=== PATIENT | female | born 1940 | race Caucasian/White ===

== ENCOUNTER 2020-11-02 09:47 | Outpatient (REF) | payer MEDICARE, SELFPAY ==
[2020-11-02 10:39] LABS: MANUAL DIFF FLAG NO
[2020-11-02 10:49] LABS: Basophils Percent Auto 0.3 % (0-2); Eosinophils Absolute Auto 0.4 X10*3/uL (0.0-0.4); Eosinophils Percent Auto 3.8 % (0-4); Hematocrit 38.2 % (37-47); Hemoglobin 12.2 g/dl (12.0-16.0); Imm Gran Abs Auto 0.12 X10*3/uL (0.00-0.03); Imm Gran Pct Auto 1.2 % (0.0-0.4); Lymphocytes Absolute Auto 3.1 X10*3/uL (1.2-4.9); Lymphocytes Percent Auto 30.6 % (20-40); Mean Corpuscular HGB Conc 31.9 g/dl (31.0-35.0); Mean Corpuscular Volume 94.1 fL (80-98); Monocytes Absolute Auto 0.9 X10*3/uL (0.1-1.2); Monocytes Percent Auto 8.8 % (2-11); Neutrophils Absolute Auto 5.6 X10*3/uL (2.0-8.3); Neutrophils Percent Auto 55.3 % (45-73); Platelet Count 319 X10*3/uL (160-400); Red Blood Count 4.06 X10*6/uL (4.20-5.50); Red Cell Distribution Width 11.9 % (11.0-16.0); White Blood Count 10.2 X10*3/uL (4.8-10.8)
[2020-11-02 10:54] LABS: Estimated Average Glucose 194 mg/dL; Hemoglobin A1c % 8.4 %
[2020-11-02 11:09] LABS: Lithium 0.19 mmol/L (0.60-1.20)
[2020-11-02 11:13] LABS: Alanine Aminotransferase 26 U/L (0-31); Albumin Level 4.7 g/dL (3.5-5.0); Alkaline Phosphatase 82 U/L (39-117); Anion Gap 19 (12-20); Aspartate Amino Transferase 49 U/L (5-31); Bilirubin Total 0.3 mg/dL (0.0-1.0); Blood Urea Nitrogen 29 mg/dL (9-16); Calcium 9.9 mg/dL (8.4-10.2); Carbon Dioxide 21 mmol/L (22-29); Chloride 104 mmol/L (96-108); Estimated Glomerular Filt Rate 48; Glucose Random 241 mg/dL (60-115); Potassium 4.5 mmol/l (3.3-5.1); Sodium 139 mmol/L (135-145); Total Protein 7.4 g/dL (6.5-8.0)
[2020-11-02 11:37] LABS: Free T4 (Free Thyroxine) 0.81 ng/dL (0.71-1.85); Thyroid Stimulating Hormone 1.09 uIU/mL (0.32-4.0)
== END 2020-11-02 09:48 | disposition home or self-care (01) ==
LOC: HO.10HDL 09:47
PROVIDERS: Visit Provider Internal Medicine
DX: E11.9 Type 2 diabetes mellitus without complications (principal); I10 Essential (primary) hypertension; D64.9 Anemia, unspecified; E03.9 Hypothyroidism, unspecified; Z20.828 Contact with and (suspected) exposure to other viral communicable diseases
CPT/HCPCS: 36415; 80053; 80178; 83036; 84439; 84443; 85025; U0003

== ENCOUNTER 2021-01-24 12:30 | Outpatient (REF) | payer MEDICARE, SELFPAY | END 2021-01-24 12:31 | disposition home or self-care (01) | LOC: HO.10HDL 12:30 | PROVIDERS: Visit Provider Internal Medicine | DX: Z13.89 Encounter for screening for other disorder (principal) ==

== ENCOUNTER 2021-01-28 08:22 | Outpatient (REF) | payer MEDICARE, SELFPAY ==
[2021-01-28 10:18] LABS: MANUAL DIFF FLAG NO
[2021-01-28 10:32] LABS: Basophils Absolute Auto 0.1 X10*3/uL (0.0-0.2); Basophils Percent Auto 0.7 % (0-2); Eosinophils Absolute Auto 0.4 X10*3/uL (0.0-0.4); Eosinophils Percent Auto 3.9 % (0-4); Hematocrit 37.4 % (37-47); Hemoglobin 12.1 g/dl (12.0-16.0); Imm Gran Abs Auto 0.09 X10*3/uL (0.00-0.03); Imm Gran Pct Auto 0.9 % (0.0-0.4); Lymphocytes Absolute Auto 3.4 X10*3/uL (1.2-4.9); Lymphocytes Percent Auto 34.7 % (20-40); Mean Corpuscular HGB Conc 32.4 g/dl (31.0-35.0); Mean Corpuscular Volume 92.8 fL (80-98); Mean Platelet Volume 9.3 fL (9.4-12.3); Monocytes Percent Auto 10.1 % (2-11); Neutrophils Absolute Auto 4.9 X10*3/uL (2.0-8.3); Neutrophils Percent Auto 49.7 % (45-73); Platelet Count 308 X10*3/uL (160-400); Red Blood Count 4.03 X10*6/uL (4.20-5.50); Red Cell Distribution Width 12.3 % (11.0-16.0); White Blood Count 9.9 X10*3/uL (4.8-10.8)
[2021-01-28 11:06] LABS: Estimated Average Glucose 206 mg/dL; Hemoglobin A1c % 8.8 %
[2021-01-28 11:12] LABS: Alanine Aminotransferase 26 U/L (0-31); Albumin Level 4.5 g/dL (3.5-5.0); Alkaline Phosphatase 83 U/L (39-117); Anion Gap 15 (12-20); Aspartate Amino Transferase 39 U/L (5-31); Bilirubin Total 0.4 mg/dL (0.0-1.0); Blood Urea Nitrogen 32 mg/dL (9-16); Calcium 9.7 mg/dL (8.4-10.2); Carbon Dioxide 21 mmol/L (22-29); Chloride 107 mmol/L (96-108); Estimated Glomerular Filt Rate 47; Glucose Fasting 185 mg/dL (60-99); Potassium 4.8 mmol/L (3.3-5.1); Sodium 138 mmol/L (135-145); Total Protein 7.3 g/dL (6.5-8.0)
[2021-01-28 11:14] LABS: Creatinine Urine 58.77 mg/dL; Microalbum/Creatinine Ratio Ur 622.7 ug/mg cr
[2021-01-28 11:34] LABS: Free T4 (Free Thyroxine) 0.77 ng/dL (0.71-1.85); Thyroid Stimulating Hormone 1.44 uIU/mL (0.32-4.0)
== END 2021-01-28 08:23 | disposition home or self-care (01) ==
LOC: HO.10HDL 08:22
PROVIDERS: Visit Provider Internal Medicine
DX: E11.22 Type 2 diabetes mellitus with diabetic chronic kidney disease (principal); N18.9 Chronic kidney disease, unspecified; E03.9 Hypothyroidism, unspecified; F31.9 Bipolar disorder, unspecified
CPT/HCPCS: 36415; 80053; 82043; 83036; 84439; 84443; 85025

== ENCOUNTER 2021-04-26 09:18 | Outpatient (REF) | payer MEDICARE, SELFPAY ==
[2021-04-26 10:34] LABS: Estimated Average Glucose 203 mg/dL; Hemoglobin A1c % 8.7 %
[2021-04-26 10:46] LABS: Anion Gap 16 (12-20); Blood Urea Nitrogen 30 mg/dL (9-16); Carbon Dioxide 23 mmol/L (22-29); Chloride 105 mmol/L (96-108); Estimated Glomerular Filt Rate 49; Glucose Random 239 mg/dL (60-115); Potassium 5.3 mmol/L (3.3-5.1); Sodium 139 mmol/L (135-145)
[2021-04-26 10:55] LABS: Free T4 (Free Thyroxine) 0.81 ng/dL (0.71-1.85); Thyroid Stimulating Hormone 0.82 uIU/mL (0.32-4.0)
== END 2021-04-26 09:19 | disposition home or self-care (01) ==
LOC: HO.10HDL 09:18
PROVIDERS: Visit Provider Internal Medicine
DX: E11.22 Type 2 diabetes mellitus with diabetic chronic kidney disease (principal); N18.9 Chronic kidney disease, unspecified; E03.9 Hypothyroidism, unspecified
CPT/HCPCS: 36415; 80048; 83036; 84439; 84443

== ENCOUNTER 2021-07-05 09:05 | Outpatient (REF) | payer MEDICARE, SELFPAY ==
[2021-07-05 10:43] LABS: Estimated Average Glucose 197 mg/dL; Hemoglobin A1c % 8.5 %
[2021-07-05 10:48] LABS: Anion Gap 16 (12-20); Blood Urea Nitrogen 31 mg/dL (9-16); Carbon Dioxide 23 mmol/L (22-29); Chloride 106 mmol/L (96-108); Estimated Glomerular Filt Rate 42; Glucose Random 229 mg/dL (60-115); Sodium 140 mmol/L (135-145)
[2021-07-05 10:59] LABS: Calcium 10.7 mg/dL (8.4-10.2)
[2021-07-06 16:37] LABS: Calcium (PTHI) 10.6 mg/dL (8.6-10.4); PTHI 9 pg/mL (14-64)
== END 2021-07-05 09:06 | disposition home or self-care (01) ==
LOC: HO.10HDL 09:05
PROVIDERS: Visit Provider Internal Medicine
DX: E11.22 Type 2 diabetes mellitus with diabetic chronic kidney disease (principal); I12.9 Hypertensive chronic kidney disease with stage 1 through stage 4 chronic kidney disease, or unspecified chronic kidney disease; N18.9 Chronic kidney disease, unspecified; E83.52 Hypercalcemia
CPT/HCPCS: 36415; 80048; 83036; 83970

== ENCOUNTER 2021-10-04 09:41 | Outpatient (REF) | payer MEDICARE, SELFPAY ==
[2021-10-04 10:17] LABS: MANUAL DIFF FLAG NO
[2021-10-04 10:24] LABS: Basophils Absolute Auto 0.1 X10*3/uL (0.0-0.2); Basophils Percent Auto 0.5 % (0-2); Eosinophils Absolute Auto 0.3 X10*3/uL (0.0-0.4); Eosinophils Percent Auto 3.7 % (0-4); Hematocrit 34.8 % (37.0-47.0); Hemoglobin 11.5 g/dl (12.0-16.0); Imm Gran Pct Auto 1.1 % (0.0-0.4); Lymphocytes Absolute Auto 3.2 X10*3/uL (1.2-4.9); Lymphocytes Percent Auto 34.4 % (20-40); Mean Corpuscular Hemoglobin 30.5 pg (27.0-33.0); Mean Corpuscular Volume 92.3 fL (80.0-98.0); Mean Platelet Volume 8.8 fL (9.4-12.3); Monocytes Absolute Auto 0.8 X10*3/uL (0.1-1.2); Monocytes Percent Auto 8.7 % (2-11); Neutrophils Absolute Auto 4.7 x10*3/uL (2.0-8.3); Neutrophils Percent Auto 51.6 % (45-73); Platelet Count 293 X10*3/uL (160-400); Red Blood Count 3.77 X10*6/uL (4.20-5.50); Red Cell Distribution Width 12.4 % (11.0-16.0); White Blood Count 9.2 X10*3/uL (4.8-10.8)
[2021-10-04 10:59] LABS: Estimated Average Glucose 194 mg/dL; Hemoglobin A1c % 8.4 %; Lithium 0.36 mmol/L (0.60-1.20)
[2021-10-04 11:16] LABS: Free T4 (Free Thyroxine) 0.86 ng/dL (0.71-1.85); Thyroid Stimulating Hormone 0.67 uIU/mL (0.32-4.0)
[2021-10-04 11:32] LABS: Alanine Aminotransferase 22 U/L (0-31); Albumin Level 4.4 g/dL (3.5-5.0); Alkaline Phosphatase 85 U/L (39-117); Anion Gap 17 (12-20); Aspartate Amino Transferase 27 U/L (5-31); Bilirubin Total 0.2 mg/dL (0.0-1.0); Blood Urea Nitrogen 25 mg/dL (9-16); Calcium 9.9 mg/dL (8.4-10.2); Carbon Dioxide 17 mmol/L (22-29); Chloride 110 mmol/L (96-108); Estimated Glomerular Filt Rate 50; Glucose Random 201 mg/dL (60-115); Potassium 5.1 mmol/L (3.3-5.1); Sodium 139 mmol/L (135-145); Total Protein 7.2 g/dL (6.5-8.0)
[2021-10-04 14:36] LABS: Creatinine Urine 46.19 mg/dL; Microalbum/Creatinine Ratio Ur 824.8 ug/mg cr
== END 2021-10-04 09:42 | disposition home or self-care (01) ==
LOC: HO.10HDL 09:41
PROVIDERS: Visit Provider Internal Medicine
DX: E11.9 Type 2 diabetes mellitus without complications (principal); I10 Essential (primary) hypertension; E03.9 Hypothyroidism, unspecified
CPT/HCPCS: 36415; 80053; 80178; 82043; 83036; 84439; 84443; 85025

== ENCOUNTER 2022-01-31 09:01 | Outpatient (REF) | payer MEDICARE, SELFPAY ==
[2022-01-31 10:38] LABS: MANUAL DIFF FLAG NO
[2022-01-31 10:44] LABS: Basophils Absolute Auto 0.1 X10*3/uL (0.0-0.2); Basophils Percent Auto 0.7 % (0-2); Eosinophils Absolute Auto 0.4 X10*3/uL (0.0-0.4); Eosinophils Percent Auto 3.5 % (0-4); Hematocrit 37.8 % (37.0-47.0); Hemoglobin 12.1 g/dl (12.0-16.0); Imm Gran Abs Auto 0.13 X10*3/uL (0.00-0.03); Imm Gran Pct Auto 1.3 % (0.0-0.4); Lymphocytes Absolute Auto 4.3 X10*3/uL (1.2-4.9); Lymphocytes Percent Auto 41.9 % (20-40); Mean Corpuscular Hemoglobin 30.1 pg (27.0-33.0); Mean Platelet Volume 9.1 fL (9.4-12.3); Monocytes Absolute Auto 0.9 X10*3/uL (0.1-1.2); Monocytes Percent Auto 8.7 % (2-11); Neutrophils Absolute Auto 4.5 x10*3/uL (2.0-8.3); Neutrophils Percent Auto 43.9 % (45-73); Platelet Count 316 X10*3/uL (160-400); Red Blood Count 4.02 X10*6/uL (4.20-5.50); Red Cell Distribution Width 12.1 % (11.0-16.0); White Blood Count 10.2 X10*3/uL (4.8-10.8)
[2022-01-31 11:06] LABS: Lithium 0.23 mmol/L (0.60-1.20)
[2022-01-31 11:08] LABS: Estimated Average Glucose 189 mg/dL; Hemoglobin A1c % 8.2 %
[2022-01-31 11:10] LABS: Alanine Aminotransferase 26 U/L (0-31); Albumin Level 4.7 g/dL (3.5-5.0); Alkaline Phosphatase 80 U/L (39-117); Anion Gap 15 (12-20); Aspartate Amino Transferase 42 U/L (5-31); Bilirubin Total 0.4 mg/dL (0.0-1.0); Blood Urea Nitrogen 31 mg/dL (9-16); Calcium 10.5 mg/dL (8.4-10.2); Carbon Dioxide 20 mmol/L (22-29); Chloride 109 mmol/L (96-108); Cholesterol 204 mg/dL; Estimated Glomerular Filt Rate 42; Glucose Fasting 206 mg/dL (60-99); HDL Cholesterol 54 mg/dL; Potassium 5.2 mmol/L (3.3-5.1); Sodium 139 mmol/L (135-145); Total Protein 7.7 g/dL (6.5-8.0); Triglycerides 435 mg/dL
[2022-01-31 11:18] LABS: Creatinine Urine 48.09 mg/dL
[2022-01-31 11:33] LABS: Microalbum/Creatinine Ratio Ur 1359.9 ug/mg cr
[2022-01-31 11:34] LABS: Free T4 (Free Thyroxine) 0.78 ng/dL (0.71-1.85); Thyroid Stimulating Hormone 0.94 uIU/mL (0.32-4.0)
== END 2022-01-31 09:02 | disposition home or self-care (01) ==
LOC: HO.10HDL 09:01
PROVIDERS: Visit Provider Internal Medicine
DX: J44.9 Chronic obstructive pulmonary disease, unspecified (principal); E03.9 Hypothyroidism, unspecified; E11.9 Type 2 diabetes mellitus without complications; E78.5 Hyperlipidemia, unspecified
CPT/HCPCS: 36415; 80053; 80061; 80178; 82043; 83036; 84439; 84443; 85025

== ENCOUNTER 2022-07-11 11:04 | Outpatient (REF) | payer MEDICARE, SELFPAY ==
[2022-07-11 13:16] LABS: MANUAL DIFF FLAG NO
[2022-07-11 13:35] LABS: Basophils Absolute Auto 0.1 X10*3/uL (0.0-0.2); Basophils Percent Auto 0.5 % (0-2); Eosinophils Absolute Auto 0.4 X10*3/uL (0.0-0.4); Eosinophils Percent Auto 2.6 % (0-4); Hematocrit 34.9 % (37.0-47.0); Hemoglobin 11.2 g/dl (12.0-16.0); Imm Gran Abs Auto 0.15 X10*3/uL (0.00-0.03); Lymphocytes Absolute Auto 4.3 X10*3/uL (1.2-4.9); Lymphocytes Percent Auto 29.1 % (20-40); Mean Corpuscular HGB Conc 32.1 g/dl (31.0-35.0); Mean Corpuscular Volume 93.6 fL (80.0-98.0); Mean Platelet Volume 9.5 fL (9.4-12.3); Monocytes Absolute Auto 1.3 X10*3/uL (0.1-1.2); Monocytes Percent Auto 8.8 % (2-11); Neutrophils Absolute Auto 8.6 x10*3/uL (2.0-8.3); Platelet Count 383 X10*3/uL (160-400); Red Blood Count 3.73 X10*6/uL (4.20-5.50); Red Cell Distribution Width 12.2 % (11.0-16.0); White Blood Count 14.8 X10*3/uL (4.8-10.8)
[2022-07-11 13:43] LABS: Alanine Aminotransferase 25 U/L (0-31); Albumin Level 4.6 g/dL (3.5-5.0); Alkaline Phosphatase 68 U/L (39-117); Anion Gap 17 (12-20); Aspartate Amino Transferase 32 U/L (5-31); Blood Urea Nitrogen 37 mg/dL (9-16); Carbon Dioxide 19 mmol/L (22-29); Chloride 106 mmol/L (96-108); Estimated Average Glucose 197 mg/dL; Estimated Glomerular Filt Rate 37; Glucose Random 211 mg/dL (60-115); Hemoglobin A1c % 8.5 %; Potassium 5.5 mmol/L (3.3-5.1); Sodium 136 mmol/L (135-145); Total Protein 7.6 g/dL (6.5-8.0)
[2022-07-11 13:51] LABS: Bilirubin Total < 0.2 mg/dL (0.0-1.0)
[2022-07-11 13:56] LABS: Creatinine Urine 40.41 mg/dL; Microalbum/Creatinine Ratio Ur 878.4 ug/mg cr
[2022-07-11 14:03] LABS: Free T4 (Free Thyroxine) 0.83 ng/dL (0.71-1.85); Thyroid Stimulating Hormone 0.77 uIU/mL (0.32-4.0)
[2022-07-11 15:03] LABS: Appearance Urine Clear; Color Urine Yellow; Glucose Urine UA Negative (Negative); Leukocyte Esterase Urine Trace (Negative); Nitrite Urine Negative (Negative); PH 5.5 (5.0-8.0); Urine Blood Negative (Negative); Urine Ketones Negative (Negative); Urine Protein 30 (1+) mg/dL (Neg-Trace)
[2022-07-11 15:08] LABS: Bacteria Urine None Seen (None Seen); Hyaline Casts Urine 0-2 /LPF (0-2); RBC Urine 0-2 /HPF (0-2); Squamous Epithelial Cell Urine 0-2 /HPF (0-2); WBC Urine 0-5 /HPF (0-5)
== END 2022-07-11 11:05 | disposition home or self-care (01) ==
LOC: HO.10HDL 11:04
PROVIDERS: Visit Provider Internal Medicine
DX: I10 Essential (primary) hypertension (principal); R60.0 Localized edema; R00.2 Palpitations; E03.9 Hypothyroidism, unspecified; E11.9 Type 2 diabetes mellitus without complications
CPT/HCPCS: 36415; 80053; 81001; 81003; 82043; 83036; 84439; 84443; 85025; 87086

== ENCOUNTER 2022-11-02 09:44 | Outpatient (REF) | payer MEDICARE, SELFPAY ==
[2022-11-02 10:38] LABS: MANUAL DIFF FLAG NO
[2022-11-02 10:42] LABS: Appearance Urine Clear; Color Urine Yellow; Glucose Urine UA Negative (Negative); Leukocyte Esterase Urine Small (1+) (Negative); Nitrite Urine Negative (Negative); PH 5.5 (5.0-9.0); Specific Gravity - Urine 1.015 (1.005-1.025); UMIC TRIGGER UA YES; Urine Blood Negative (Negative); Urine Ketones Negative (Negative); Urine Protein 100 (2+) mg/dL (Neg-Trace)
[2022-11-02 10:49] LABS: Basophils Absolute Auto 0.1 X10*3/uL (0.0-0.2); Basophils Percent Auto 0.9 % (0-2); Eosinophils Absolute Auto 0.4 X10*3/uL (0.0-0.4); Eosinophils Percent Auto 4.3 % (0-4); Hemoglobin 11.5 g/dl (12.0-16.0); Imm Gran Abs Auto 0.12 X10*3/uL (0.00-0.03); Imm Gran Pct Auto 1.2 % (0.0-0.4); Lymphocytes Absolute Auto 3.6 X10*3/uL (1.2-4.9); Lymphocytes Percent Auto 34.9 % (20-40); Mean Corpuscular HGB Conc 31.9 g/dl (31.0-35.0); Mean Corpuscular Hemoglobin 29.5 pg (27.0-33.0); Mean Corpuscular Volume 92.3 fL (80.0-98.0); Neutrophils Percent Auto 48.7 % (45-73); Platelet Count 370 X10*3/uL (160-400); Red Cell Distribution Width 12.1 % (11.0-16.0); White Blood Count 10.3 X10*3/uL (4.8-10.8)
[2022-11-02 10:51] LABS: Bacteria Urine None Seen (None Seen); RBC Urine 0-2 /HPF (0-2); Squamous Epithelial Cell Urine 0-2 /HPF (0-2); WBC Urine 0-5 /HPF (0-5)
[2022-11-02 11:43] LABS: Estimated Average Glucose 209 mg/dL; Hemoglobin A1c % 8.9 %
[2022-11-02 12:07] LABS: Creatinine Urine 77.77 mg/dL
[2022-11-02 12:08] LABS: Microalbum/Creatinine Ratio Ur 835.7 ug/mg cr
[2022-11-02 12:14] LABS: Alanine Aminotransferase 25 U/L (0-31); Albumin Level 4.6 g/dL (3.5-5.0); Alkaline Phosphatase 57 U/L (39-117); Anion Gap 17 (12-20); Aspartate Amino Transferase 30 U/L (5-31); Bilirubin Total 0.3 mg/dL (0.0-1.0); Blood Urea Nitrogen 37 mg/dL (9-16); Calcium 10.7 mg/dL (8.4-10.2); Carbon Dioxide 19 mmol/L (22-29); Chloride 110 mmol/L (96-108); Cholesterol 221 mg/dL; Estimated Glomerular Filt Rate 34; Free T4 (Free Thyroxine) 0.84 ng/dL (0.71-1.85); Glucose Fasting 205 mg/dL (60-99); HDL Cholesterol 55 mg/dL; Iron 101 mcg/dL (30-160); Percent Iron Saturation 24 % (15-50); Potassium 5.7 mmol/L (3.3-5.1); Sodium 140 mmol/L (135-145); Thyroid Stimulating Hormone 0.62 uIU/mL (0.32-4.0); Total Iron Binding Capacity 422 mcg/dL (228-428); Total Protein 7.5 g/dL (6.5-8.0); Triglycerides 409 mg/dL; Unsaturated Iron Binding 321 ug/dL
[2022-11-02 12:18] LABS: Vitamin B12 333 pg/mL (200-900)
== END 2022-11-02 09:45 | disposition home or self-care (01) ==
LOC: HO.10HDL 09:44
PROVIDERS: Visit Provider Internal Medicine
DX: Z00.00 Encounter for general adult medical examination without abnormal findings (principal); E03.9 Hypothyroidism, unspecified; E11.9 Type 2 diabetes mellitus without complications
CPT/HCPCS: 36415; 80053; 80061; 81001; 82043; 82607; 83036; 83540; 84439; 84443; 85025

== ENCOUNTER 2022-11-08 09:33 | Outpatient (REF) | payer MEDICARE, SELFPAY ==
[2022-11-08 12:07] LABS: Anion Gap 15 (12-20); Blood Urea Nitrogen 32 mg/dL (9-16); Calcium 10.8 mg/dL (8.4-10.2); Carbon Dioxide 22 mmol/L (22-29); Chloride 104 mmol/L (96-108); Estimated Glomerular Filt Rate 34; Glucose Random 285 mg/dL (60-115); Potassium 4.9 mmol/L (3.3-5.1); Sodium 136 mmol/L (135-145)
== END 2022-11-08 09:34 | disposition home or self-care (01) ==
LOC: HO.10HDL 09:33
PROVIDERS: Visit Provider Internal Medicine
DX: I12.9 Hypertensive chronic kidney disease with stage 1 through stage 4 chronic kidney disease, or unspecified chronic kidney disease (principal); N18.9 Chronic kidney disease, unspecified
CPT/HCPCS: 36415; 80048

== ENCOUNTER → 2023-01-01 09:21 | Outpatient (BNVA) | payer MEDICARE, SELFPAY | PROVIDERS: PCP Internal Medicine; Referring Provider Internal Medicine; Visit Provider Internal Medicine Cardiovascular Disease | DX: R07.9 Chest pain, unspecified (principal); R53.83 Other fatigue; G47.30 Sleep apnea, unspecified | CPT/HCPCS: 93005; 99202 ==

== ENCOUNTER 2023-01-16 10:07 | Outpatient (REF) | payer MEDICARE, SELFPAY ==
[2023-01-16 10:37] LABS: MANUAL DIFF FLAG NO
[2023-01-16 10:52] LABS: Basophils Absolute Auto 0.1 X10*3/uL (0.0-0.2); Basophils Percent Auto 0.8 % (0-2); Eosinophils Absolute Auto 0.4 X10*3/uL (0.0-0.4); Hematocrit 36.2 % (37.0-47.0); Hemoglobin 11.6 g/dl (12.0-16.0); Imm Gran Abs Auto 0.08 X10*3/uL (0.00-0.03); Imm Gran Pct Auto 0.8 % (0.0-0.4); Lymphocytes Absolute Auto 3.7 X10*3/uL (1.2-4.9); Lymphocytes Percent Auto 34.7 % (20-40); Mean Corpuscular Hemoglobin 29.3 pg (27.0-33.0); Mean Corpuscular Volume 91.4 fL (80.0-98.0); Mean Platelet Volume 9.1 fL (9.4-12.3); Monocytes Absolute Auto 0.9 X10*3/uL (0.1-1.2); Monocytes Percent Auto 8.1 % (2-11); Neutrophils Absolute Auto 5.5 x10*3/uL (2.0-8.3); Neutrophils Percent Auto 51.6 % (45-73); Platelet Count 371 X10*3/uL (160-400); Red Blood Count 3.96 X10*6/uL (4.20-5.50); Red Cell Distribution Width 12.5 % (11.0-16.0); White Blood Count 10.6 X10*3/uL (4.8-10.8)
[2023-01-16 11:03] LABS: Estimated Average Glucose 203 mg/dL; Hemoglobin A1c % 8.7 %
[2023-01-16 11:27] LABS: Alanine Aminotransferase 25 U/L (0-31); Albumin Level 4.6 g/dL (3.5-5.0); Alkaline Phosphatase 58 U/L (39-117); Anion Gap 16 (12-20); Aspartate Amino Transferase 32 U/L (5-31); Bilirubin Total 0.3 mg/dL (0.0-1.0); Blood Urea Nitrogen 35 mg/dL (9-16); Calcium 11.2 mg/dL (8.4-10.2); Carbon Dioxide 21 mmol/L (22-29); Chloride 106 mmol/L (96-108); Estimated Glomerular Filt Rate 36; Glucose Random 183 mg/dL (60-115); Iron 90 mcg/dL (30-160); Percent Iron Saturation 21 % (15-50); Potassium 5.4 mmol/L (3.3-5.1); Sodium 138 mmol/L (135-145); Total Iron Binding Capacity 423 mcg/dL (228-428); Total Protein 7.3 g/dL (6.5-8.0); Unsaturated Iron Binding 333 ug/dL
[2023-01-16 11:45] LABS: Free T4 (Free Thyroxine) 0.82 ng/dL (0.71-1.85); Thyroid Stimulating Hormone 0.66 uIU/mL (0.32-4.0)
== END 2023-01-16 10:08 | disposition home or self-care (01) ==
LOC: HO.10HDL 10:07
PROVIDERS: Visit Provider Internal Medicine
DX: I12.9 Hypertensive chronic kidney disease with stage 1 through stage 4 chronic kidney disease, or unspecified chronic kidney disease (principal); E11.22 Type 2 diabetes mellitus with diabetic chronic kidney disease; N18.9 Chronic kidney disease, unspecified; F31.9 Bipolar disorder, unspecified; E03.9 Hypothyroidism, unspecified
CPT/HCPCS: 36415; 80053; 80178; 83036; 83540; 84439; 84443; 85025

== ENCOUNTER → 2023-01-17 10:45 | Outpatient (REF) | payer MEDICARE, SELFPAY ==
--- NOTE | 2023-01-17 10:48 | CA_ITS ---
Transthoracic Echocardiogram Patient (Last, First, Middle): Qi Fernandez Marie Gender: Female Date of : 1940 Age: 82 Procedure Date: 01/17/2023 Procedure Type: Transthoracic Echocardiogram Location: OP Height: 165.1 cm Weight: 90.27 kg BSA: 1.97 m2 Heart Rate: 82 bpm BP: 170 / 80 mmHg Product Development Manager: VINCENT Referring MD: Nikolai Stephenson MD Symptoms: R07.9 - Chest pain, unspecified Study Quality: Fair ECG Rhythm: Sinus Conclusions: - The left ventricular systolic function is normal. The visually estimated ejection fraction is between 60-65%. - There is mild aortic valve stenosis. Findings Left Ventricle Normal left ventricular cavity size. There is mildly increased left ventricular wall thickness. The left ventricular systolic function is normal. The visually estimated ejection fraction is between 60-65%. There is no evidence of regional wall motion abnormalities. E/E prime ratio is between 8 and 15 consistent with indeterminate filling pressures. Evidence suggests grade I (mild) diastolic dysfunction. Right Ventricle Normal right ventricular cavity size and systolic function. Atria Both atria are normal in size. Aortic Valve There is mild calcification of the aortic valve. There is mild aortic valve stenosis. There is no aortic valve regurgitation. Mitral Valve The mitral valve appears normal. There is no mitral valve regurgitation. There is no mitral valve stenosis. Pulmonic Valve The pulmonic valve is likely normal. Tricuspid Valve There is trace tricuspid valve regurgitation. There is no evidence of pulmonary hypertension. Great Vessels The asc aorta is normal in size. Venous The inferior vena cava is normal in size and collapses greater than 50% with inspiration. Pericardium/Pleural Prominent epicardial adipose tissue noted. There is a trivial pericardial effusion. Prior Study Comparison No prior study available for comparison. Measurements 2D Linear Measurements IVSd: 1.21 0.6-0.9/0.6-1.0 cm LVIDd: 3.88 3.9-5.3/4.2-5.9 cm LVIDd Index: 1.97 2.4-3.2/2.2-3.1 cm/m2 LVIDs: 2.62 2.0-3.6 cm LVPWd: 1.07 0.7-1.1 cm LA Diam: 3.30 2.7-3.8/3.0-4.0 cm LAIDs Index: 1.68 1.5-2.3 cm/m2 LV Mass: 182.35 67-162/88-224 g LV Mass Index: 92.56 43-95/49-115 g/m2 LVOT Diam: 2.00 3.0+(-)1.3 cm 2D Systolic Function EF 4C: 60.40 >55% EF 2C: 53.30 >55% EF BiP: 55.70 >55% Mitral Valve MV Pk E: 0.60 MV PK A: 0.92 MV Decel Time: 210.00 E/A: 0.60 E'Lateral: 5.52 E'Medial: 5.61 E/E' Med: 10.70 E/E' Lat: 10.90 PHT: 62.00 MVA PHT: 3.55 Decel [place]: 2.85 Aortic Valve AoV Pk Saul: 2.04 AoV Mn Saul: 1.46 AoV VTI: 0.39 AoV Pk Grad: 17.00 Aov Mn Grad: 10.00 ALONDRA Cont.VTI: 1.71 LVOT LVOT Pk Saul: 1.12 LVOT Mn Saul: 0.75 LVOT VTI: 0.21 LVOT Pk Grad: 5.00 LVOT Mn Grad: 3.00 LVOT Diam: 2.00 LVOT Area: 3.14 Diastolic Function MV Pk E: 0.60 MV Pk A: 0.92 E/A: 0.60 E'Medial: 5.61 E/E' Med: 10.70 E' Laterial: 5.52 E/E' Lat: 10.90 Right Ventricle TAPSE (mm): 21.40 TVS' Saul: 15.20 Tricuspid Valve TR Pk Saul: 1.59 TR Pk Grad: 10.00 RA Press: 3.00 RVSP: 13.00 Great Vessels Aorta Sinus of Valsalva: 3.20 2.0-3.5 cm Ao Asc: 3.30 2.1-3.4 cm Pulmonary Valve PV Pk Saul: 1.58 Peak PV Grad: 10.00 Updated in Other Vendor System with Status of Final Last Urbina MD electronically signed on 01/19/2023 1:31:10 PM with status of Final
== END ==
LOC: HO.CARD 10:45
PROVIDERS: Visit Provider Internal Medicine Cardiovascular Disease
DX: R07.9 Chest pain, unspecified (principal)
CPT/HCPCS: 93306

== ENCOUNTER → 2023-01-19 08:29 | Outpatient (REF) | payer MEDICARE, SELFPAY ==
--- NOTE | ~2023-01-19 | NM_ITS ---
Lexiscan Myocardial perfusion study Indication: Chest pain, assess for coronary disease and ischemia Technique: The patient was brought in for a Lexiscan perfusion study on 01/19/2023 and was injected 0.4 mg of Lexiscan intravenously. Within a minute of this injection 30 mCi of sestamibi was given intravenously. Images were obtained using the SPECT gamma camera interlaced with the gating device. Images were obtained in supine position. Resting perfusion study was performed on 01/23/2023. Patient was administered 30 mCi of sestamibi intravenously at rest. Images were then obtained in supine position. Total DLP 184mGy-cm. Images were processed with the software and compared side to side in short axis, horizontal long axis and vertical long axis views. Findings: Raw acquisition reviewed. Arms by the patient's side. The stress perfusion study showed mildly diminished tracer uptake along the mid anterior wall as well as inferior wall. With CT attenuation correction, there is significantly improved suggestive of artifactual etiology. The gated study shows normal LV systolic function. However, cannot LVEF does not appear accurate. LV cavity is normal in size. The gated study shows normal wall thickening and contraction of segments. Resting study shows diminished tracer uptake along the inferior wall towards the basal aspect. There is improvement with CT attenuation correction suggestive of diaphragmatic attenuation artifact. Gating at rest reveals normal wall motion. Calculated LVEF unreliable. The findings are consistent with no clear reversible or fixed perfusion defects. NM/NM cardiolite stress test Impression: 1. Myocardial perfusion imaging study shows likely normal myocardial perfusion. 2. Gated LVEF is unreliable, but visually normal contractility. EKG component of the test reported separately.
--- NOTE | 2023-01-19 08:36 | CA_ITS ---
Acquisition Time: 2023-01-19 08:59:48 Total Exercise Time: 00:02:00 Test Indications: CHEST PAIN Medications: Protocol: LEXISCAN Max HR: 108 BPM 78% of Pred: 137 BPM Max BP: 178/076 mmHG Max Work Load: 1.0 METS Pharmacological stress test using Lexiscan while sitting and kicking her feet. Pt tolerated well.. Denies any SOB or CP. EKG without any arrhythmias, non-= diagnostic for ischemia. Nuclear images to follow. Normotensive response to test. Test reviewed with Dr. Kelley Referred By: Nikolai Stephenson Overread By: Vielka Alvarado NP
== END ==
LOC: HO.CARD 08:29
PROVIDERS: PCP Internal Medicine; Visit Provider Internal Medicine Cardiovascular Disease
DX: R07.9 Chest pain, unspecified (principal); R53.83 Other fatigue
CPT/HCPCS: 78452; 93017; A9500; J2785

== ENCOUNTER 2023-01-26 09:19 | Outpatient (REF) | payer MEDICARE, SELFPAY ==
[2023-01-26 11:37] LABS: Anion Gap 16 (12-20); Blood Urea Nitrogen 45 mg/dL (9-16); Calcium 10.1 mg/dL (8.4-10.2); Carbon Dioxide 19 mmol/L (22-29); Chloride 109 mmol/L (96-108); Estimated Glomerular Filt Rate 32; Glucose Random 233 mg/dL (60-115); Potassium 5.2 mmol/L (3.3-5.1); Sodium 139 mmol/L (135-145)
[2023-01-29 15:53] LABS: Calcium (PTHI) 10.2 mg/dL (8.6-10.4); PTHI <6 pg/mL (16-77)
== END 2023-01-26 09:20 | disposition home or self-care (01) ==
LOC: HO.10HDL 09:19
PROVIDERS: Visit Provider Internal Medicine
DX: I12.9 Hypertensive chronic kidney disease with stage 1 through stage 4 chronic kidney disease, or unspecified chronic kidney disease (principal); E11.22 Type 2 diabetes mellitus with diabetic chronic kidney disease; N18.9 Chronic kidney disease, unspecified; E83.52 Hypercalcemia
CPT/HCPCS: 36415; 80048; 83970

== ENCOUNTER 2023-03-13 10:12 | Outpatient (REF) | payer MEDICARE, SELFPAY ==
[2023-03-13 13:19] LABS: MANUAL DIFF FLAG NO
[2023-03-13 13:23] LABS: Basophils Absolute Auto 0.1 X10*3/uL (0.0-0.2); Basophils Percent Auto 0.7 % (0-2); Eosinophils Absolute Auto 0.5 X10*3/uL (0.0-0.4); Eosinophils Percent Auto 4.2 % (0-4); Hematocrit 35.4 % (37.0-47.0); Hemoglobin 11.5 g/dl (12.0-16.0); Imm Gran Abs Auto 0.11 X10*3/uL (0.00-0.03); Lymphocytes Absolute Auto 3.6 X10*3/uL (1.2-4.9); Lymphocytes Percent Auto 33.4 % (20-40); Mean Corpuscular HGB Conc 32.5 g/dl (31.0-35.0); Mean Corpuscular Hemoglobin 30.5 pg (27.0-33.0); Mean Corpuscular Volume 93.9 fL (80.0-98.0); Mean Platelet Volume 9.5 fL (9.4-12.3); Monocytes Absolute Auto 0.9 X10*3/uL (0.1-1.2); Monocytes Percent Auto 8.5 % (2-11); Neutrophils Absolute Auto 5.7 x10*3/uL (2.0-8.3); Neutrophils Percent Auto 52.2 % (45-73); Platelet Count 372 X10*3/uL (160-400); Red Blood Count 3.77 X10*6/uL (4.20-5.50); Red Cell Distribution Width 12.4 % (11.0-16.0); White Blood Count 10.9 X10*3/uL (4.8-10.8)
[2023-03-13 13:47] LABS: Estimated Average Glucose 203 mg/dL; Hemoglobin A1c % 8.7 %
[2023-03-13 14:02] LABS: Alanine Aminotransferase 24 U/L (0-31); Albumin Level 4.6 g/dL (3.5-5.0); Alkaline Phosphatase 65 U/L (39-117); Anion Gap 14 (12-20); Aspartate Amino Transferase 28 U/L (5-31); Bilirubin Total 0.3 mg/dL (0.0-1.0); Blood Urea Nitrogen 43 mg/dL (9-16); Calcium 10.1 mg/dL (8.4-10.2); Carbon Dioxide 21 mmol/L (22-29); Chloride 108 mmol/L (96-108); Estimated Glomerular Filt Rate 29; Glucose Random 305 mg/dL (60-115); Iron 86 mcg/dL (30-160); Percent Iron Saturation 21 % (15-50); Sodium 137 mmol/L (135-145); Total Iron Binding Capacity 417 mcg/dL (228-428); Total Protein 7.2 g/dL (6.5-8.0); Unsaturated Iron Binding 331 ug/dL
[2023-03-13 14:08] LABS: Microalbum/Creatinine Ratio Ur 618.7 ug/mg cr
== END 2023-03-13 10:13 | disposition home or self-care (01) ==
LOC: HO.10HDL 10:12
PROVIDERS: Visit Provider Internal Medicine
DX: D64.9 Anemia, unspecified (principal); I12.9 Hypertensive chronic kidney disease with stage 1 through stage 4 chronic kidney disease, or unspecified chronic kidney disease; E11.22 Type 2 diabetes mellitus with diabetic chronic kidney disease; N18.9 Chronic kidney disease, unspecified
CPT/HCPCS: 36415; 80053; 82043; 83036; 83540; 85025

== ENCOUNTER 2023-03-19 10:02 | Outpatient (REF) | payer MEDICARE, SELFPAY ==
[2023-03-19 14:31] LABS: Anion Gap 18 (12-20); Carbon Dioxide 19 mmol/L (22-29); Chloride 107 mmol/L (96-108); Hematocrit 34.7 % (37.0-47.0); Mean Corpuscular HGB Conc 31.7 g/dl (31.0-35.0); Mean Corpuscular Hemoglobin 30.1 pg (27.0-33.0); Mean Corpuscular Volume 94.8 fL (80.0-98.0); Mean Platelet Volume 9.5 fL (9.4-12.3); Platelet Count 375 X10*3/uL (160-400); Potassium 5.6 mmol/L (3.3-5.1); Red Blood Count 3.66 X10*6/uL (4.20-5.50); Red Cell Distribution Width 12.2 % (11.0-16.0); Sodium 138 mmol/L (135-145); White Blood Count 10.6 X10*3/uL (4.8-10.8)
[2023-03-19 14:53] LABS: Alanine Aminotransferase 23 U/L (0-31); Albumin Level 4.5 g/dL (3.5-5.0); Alkaline Phosphatase 57 U/L (39-117); Aspartate Amino Transferase 29 U/L (5-31); Bilirubin Direct 0.1 mg/dL (0.0-0.5); Bilirubin Total 0.3 mg/dL (0.0-1.0); Blood Urea Nitrogen 52 mg/dL (9-16); Calcium 10.3 mg/dL (8.4-10.2); Estimated Glomerular Filt Rate 27; Phosphorus 4.5 mg/dL (2.7-4.5); Total Protein 7.2 g/dL (6.5-8.0); Uric Acid 8.5 mg/dL (2.4-5.7)
[2023-03-19 14:59] LABS: Vitamin D 25-OH Total 25.4 ng/mL (>30)
[2023-03-19 15:06] LABS: Creatinine Urine 52.98 mg/dL; Protein/Creatinine Ratio, Ur 0.76 (<0.2); Total Protein Urine Random 40 mg/dL (<12)
[2023-03-20 12:09] LABS: Prot Elec - Albumin 4.4 g/dL (3.8-4.8); Prot Elec - Alpha1 0.4 g/dL (0.2-0.3); Prot Elec - Alpha2 0.9 g/dL (0.5-0.9); Prot Elec - Beta 1 0.6 g/dL (0.4-0.6); Prot Elec - Beta 2 0.4 g/dL (0.2-0.5); Prot Elec - Gamma 0.8 g/dL (0.8-1.7); Prot Elec - Total Protein 7.4 g/dL (6.1-8.1)
[2023-03-20 21:29] LABS: Anti Glomerular Basement Memb <1.0 AI; Myeloperoxidase Antibody <1.0 AI
[2023-03-21 03:50] LABS: HBsAGNum1 0.32 S/CO (0.00-0.99); Hepatitis B Surface Antigen Negative (Negative); ~HepC Num1 0.19 S/CO (0.00-0.79); ~Hepatitis C Antibody Nonreactive (Nonreactive)
[2023-03-22 18:04] LABS: Calcium (PTHI) 10.8 mg/dL (8.6-10.4); PTHI <6 pg/mL (16-77)
== END 2023-03-19 10:03 | disposition home or self-care (01) ==
LOC: HO.10HDL 10:02
PROVIDERS: Internal Medicine Nephrology; Visit Provider Internal Medicine
DX: I12.9 Hypertensive chronic kidney disease with stage 1 through stage 4 chronic kidney disease, or unspecified chronic kidney disease (principal); N18.31 Chronic kidney disease, stage 3a; R79.89 Other specified abnormal findings of blood chemistry
CPT/HCPCS: 36415; 80051; 80076; 82306; 82310; 82565; 83520; 83970; 84100; 84156; 84165; 84520; 84550; 85027; 86021; 86803; 87340

== ENCOUNTER 2023-03-29 13:39 | Outpatient (REF) | payer MEDICARE, SELFPAY ==
--- NOTE | ~2023-03-29 | US_ITS ---
EXAMINATION: US RETROPERITONEAL LIMITED (RENAL ONLY) CLINICAL INFORMATION: Stage 3 chronic kidney disease. COMPARISON: None available. TECHNIQUE: Real-time imaging of the kidneys. FINDINGS: RIGHT KIDNEY: 10.7 x 6.0 x 5.8 cm (SAG x AP x TRV). The kidney is normal in size and echogenicity. There are persistent lobulations. Renal cortical thickness is normal. No renal hydronephrosis. At the interpolar aspect, 4 mm and 9 mm nonobstructing calculi are seen, with twinkle artifact. At the interpolar aspect, there are is a 9 mm benign, simple cyst, for which no imaging follow-up is recommended. LEFT KIDNEY: 10.9 x 5.1 x 5.6 cm (SAG x AP x TRV). The kidney is normal in size, contour, and echogenicity. Renal cortical thickness is normal. No hydronephrosis. At the upper pole, a 2.1 cm benign, simple cyst is seen. There is an adjacent 1.0 cm shadowing calculus, with twinkle artifact. US/US renal BI IMPRESSION: 1. Nonobstructing bilateral renal calculi are seen, as detailed. No hydronephrosis is noted. 2. There are benign, simple bilateral renal cysts, for which no imaging follow-up is recommended.
== END 2023-03-29 13:40 | disposition home or self-care (01) ==
LOC: HO.US 13:39
PROVIDERS: PCP Internal Medicine; Visit Provider Internal Medicine Nephrology
DX: I12.9 Hypertensive chronic kidney disease with stage 1 through stage 4 chronic kidney disease, or unspecified chronic kidney disease (principal); N18.31 Chronic kidney disease, stage 3a
CPT/HCPCS: 76775

== ENCOUNTER 2023-06-15 10:58 | Outpatient (REF) | payer MEDICARE, SELFPAY ==
[2023-06-15 14:24] LABS: MANUAL DIFF FLAG NO
[2023-06-15 14:46] LABS: Basophils Absolute Auto 0.1 X10*3/uL (0.0-0.2); Basophils Percent Auto 0.6 % (0-2); Eosinophils Absolute Auto 0.5 X10*3/uL (0.0-0.4); Eosinophils Percent Auto 4.4 % (0-4); Hematocrit 35.8 % (37.0-47.0); Hemoglobin 11.4 g/dl (12.0-16.0); Imm Gran Abs Auto 0.13 X10*3/uL (0.00-0.03); Imm Gran Pct Auto 1.2 % (0.0-0.4); Lymphocytes Absolute Auto 3.9 X10*3/uL (1.2-4.9); Lymphocytes Percent Auto 34.4 % (20-40); Mean Corpuscular HGB Conc 31.8 g/dl (31.0-35.0); Mean Corpuscular Hemoglobin 29.8 pg (27.0-33.0); Mean Corpuscular Volume 93.7 fL (80.0-98.0); Mean Platelet Volume 9.1 fL (9.4-12.3); Monocytes Absolute Auto 0.9 X10*3/uL (0.1-1.2); Monocytes Percent Auto 8.2 % (2-11); Neutrophils Absolute Auto 5.7 x10*3/uL (2.0-8.3); Neutrophils Percent Auto 51.2 % (45-73); Platelet Count 392 X10*3/uL (160-400); Red Blood Count 3.82 X10*6/uL (4.20-5.50); Red Cell Distribution Width 12.1 % (11.0-16.0); White Blood Count 11.2 X10*3/uL (4.8-10.8)
[2023-06-15 15:26] LABS: Alanine Aminotransferase 26 U/L (0-31); Albumin Level 4.7 g/dL (3.5-5.0); Alkaline Phosphatase 59 U/L (39-117); Anion Gap 14 (12-20); Aspartate Amino Transferase 38 U/L (5-31); Bilirubin Total 0.2 mg/dL (0.0-1.0); Blood Urea Nitrogen 51 mg/dL (9-16); Calcium 10.4 mg/dL (8.4-10.2); Carbon Dioxide 20 mmol/L (22-29); Chloride 107 mmol/L (96-108); Estimated Glomerular Filt Rate 29; Glucose Random 225 mg/dL (60-115); Iron 100 mcg/dL (30-160); Percent Iron Saturation 23 % (15-50); Potassium 5.4 mmol/L (3.3-5.1); Sodium 136 mmol/L (135-145); Total Iron Binding Capacity 442 mcg/dL (228-428); Total Protein 7.8 g/dL (6.5-8.0); Unsaturated Iron Binding 342 ug/dL
[2023-06-15 15:45] LABS: Lithium 0.32 mmol/L (0.60-1.20)
[2023-06-15 15:58] LABS: Free T4 (Free Thyroxine) 0.88 ng/dL (0.71-1.85); Thyroid Stimulating Hormone 0.77 uIU/mL (0.32-4.0)
== END 2023-06-15 10:59 | disposition home or self-care (01) ==
LOC: HO.10HDL 10:58
PROVIDERS: Visit Provider Internal Medicine
DX: I12.9 Hypertensive chronic kidney disease with stage 1 through stage 4 chronic kidney disease, or unspecified chronic kidney disease (principal); N18.9 Chronic kidney disease, unspecified; D63.1 Anemia in chronic kidney disease; F31.9 Bipolar disorder, unspecified; E03.9 Hypothyroidism, unspecified
CPT/HCPCS: 36415; 80053; 80178; 83540; 84439; 84443; 85025

== ENCOUNTER 2023-08-08 12:23 | Outpatient (REF) | payer MEDICARE, SELFPAY ==
[2023-08-08 13:18] LABS: MANUAL DIFF FLAG NO
[2023-08-08 13:21] LABS: Basophils Absolute Auto 0.1 X10*3/uL (0.0-0.2); Basophils Percent Auto 0.6 % (0-2); Eosinophils Absolute Auto 0.5 X10*3/uL (0.0-0.4); Eosinophils Percent Auto 3.1 % (0-4); Hematocrit 33.6 % (37.0-47.0); Hemoglobin 10.7 g/dl (12.0-16.0); Imm Gran Abs Auto 0.33 X10*3/uL (0.00-0.03); Imm Gran Pct Auto 2.3 % (0.0-0.4); Lymphocytes Absolute Auto 3.8 X10*3/uL (1.2-4.9); Lymphocytes Percent Auto 26.3 % (20-40); Mean Corpuscular HGB Conc 31.8 g/dl (31.0-35.0); Mean Corpuscular Hemoglobin 29.9 pg (27.0-33.0); Mean Corpuscular Volume 93.9 fL (80.0-98.0); Mean Platelet Volume 8.8 fL (9.4-12.3); Monocytes Absolute Auto 1.3 X10*3/uL (0.1-1.2); Monocytes Percent Auto 8.6 % (2-11); Neutrophils Absolute Auto 8.6 x10*3/uL (2.0-8.3); Neutrophils Percent Auto 59.1 % (45-73); Platelet Count 512 X10*3/uL (160-400); Red Blood Count 3.58 X10*6/uL (4.20-5.50); White Blood Count 14.6 X10*3/uL (4.8-10.8)
[2023-08-08 13:37] LABS: Estimated Average Glucose 206 mg/dL; Hemoglobin A1c % 8.8 % (<6.0)
[2023-08-08 14:04] LABS: Alanine Aminotransferase 22 U/L (0-31); Albumin Level 4.5 g/dL (3.5-5.0); Alkaline Phosphatase 71 U/L (39-117); Anion Gap 13 (12-20); Aspartate Amino Transferase 35 U/L (5-31); Bilirubin Total 0.2 mg/dL (0.0-1.0); Blood Urea Nitrogen 42 mg/dL (9-16); Calcium 10.7 mg/dL (8.4-10.2); Carbon Dioxide 19 mmol/L (22-29); Chloride 108 mmol/L (96-108); Estimated Glomerular Filt Rate 29; Glucose Random 206 mg/dL (60-115); Potassium 5.4 mmol/L (3.3-5.1); Sodium 135 mmol/L (135-145); Total Protein 7.9 g/dL (6.5-8.0)
== END 2023-08-08 12:24 | disposition home or self-care (01) ==
LOC: HO.10HDL 12:23
PROVIDERS: Visit Provider Internal Medicine
DX: D64.9 Anemia, unspecified (principal); I12.9 Hypertensive chronic kidney disease with stage 1 through stage 4 chronic kidney disease, or unspecified chronic kidney disease; E11.22 Type 2 diabetes mellitus with diabetic chronic kidney disease; N18.9 Chronic kidney disease, unspecified
CPT/HCPCS: 36415; 80053; 83036; 85025

== ENCOUNTER 2023-08-22 11:03 | Outpatient (REF) | payer MEDICARE, SELFPAY ==
[2023-08-22 13:46] LABS: Appearance Urine Clear; Color Urine Yellow; Glucose Urine UA Negative (Negative); Leukocyte Esterase Urine Small (1+) (Negative); Nitrite Urine Negative (Negative); PH 5.5 (5.0-9.0); UMIC TRIGGER UACC YES; Urine Blood Negative (Negative); Urine Ketones Negative (Negative); Urine Protein 30 (1+) mg/dL (Neg-Trace)
[2023-08-22 14:11] LABS: Bacteria Urine None Seen (None Seen); Hyaline Casts Urine 0-2 /LPF (0-2); RBC Urine 0-2 /HPF (0-2); Squamous Epithelial Cell Urine 0-2 /HPF (0-2); UACC Culture Trigger YES; WBC Urine 0-5 /HPF (0-5)
== END 2023-08-22 11:04 | disposition home or self-care (01) ==
LOC: HO.10HDLNP 11:03
PROVIDERS: Visit Provider Internal Medicine
DX: R41.0 Disorientation, unspecified (principal)
CPT/HCPCS: 81001; 87086

== ENCOUNTER 2023-08-28 12:15 | Outpatient (REF) | payer OTHER, SELFPAY ==
--- NOTE | ~2023-08-28 | XR_ITS ---
EXAMINATION: XR CHEST CLINICAL INFORMATION: Cough and COMPARISON: None available. TECHNIQUE: 2 views of the chest were obtained. FINDINGS: Heart size mildly prominent. Mediastinum is unremarkable. Aortic calcifications are seen. Vascularity is prominent but there is suboptimal inspiration. No consolidations or effusions. Degenerative changes. XR/XR chest 2V IMPRESSION: Low lung volumes likely responsible for vessel crowding. Mildly enlarged cardiac silhouette. No consolidations.
== END 2023-08-28 12:16 | disposition home or self-care (01) ==
LOC: HO.XRAY 12:15
PROVIDERS: PCP Internal Medicine; Visit Provider Internal Medicine
DX: R05.9 Cough, unspecified (principal); I10 Essential (primary) hypertension
CPT/HCPCS: 71046

== ENCOUNTER 2023-09-18 10:53 | Outpatient (REF) | payer OTHER, SELFPAY ==
[2023-09-18 13:39] LABS: MANUAL DIFF FLAG NO
[2023-09-18 13:44] LABS: Basophils Absolute Auto 0.1 X10*3/uL (0.0-0.2); Basophils Percent Auto 0.8 % (0-2); Eosinophils Absolute Auto 0.4 X10*3/uL (0.0-0.4); Eosinophils Percent Auto 3.8 % (0-4); Hematocrit 34.6 % (37.0-47.0); Hemoglobin 10.9 g/dl (12.0-16.0); Imm Gran Abs Auto 0.09 X10*3/uL (0.00-0.03); Imm Gran Pct Auto 0.9 % (0.0-0.4); Mean Corpuscular HGB Conc 31.5 g/dl (31.0-35.0); Mean Corpuscular Hemoglobin 28.9 pg (27.0-33.0); Mean Corpuscular Volume 91.8 fL (80.0-98.0); Mean Platelet Volume 9.1 fL (9.4-12.3); Monocytes Percent Auto 9.3 % (2-11); Neutrophils Percent Auto 47.2 % (45-73); Platelet Count 390 X10*3/uL (160-400); Red Blood Count 3.77 X10*6/uL (4.20-5.50); Red Cell Distribution Width 12.2 % (11.0-16.0); White Blood Count 10.5 X10*3/uL (4.8-10.8)
[2023-09-18 14:11] LABS: Alanine Aminotransferase 25 U/L (0-31); Albumin Level 4.6 g/dL (3.5-5.0); Alkaline Phosphatase 61 U/L (39-117); Anion Gap 16 (12-20); Aspartate Amino Transferase 24 U/L (5-31); Bilirubin Total 0.2 mg/dL (0.0-1.0); Blood Urea Nitrogen 56 mg/dL (9-16); Calcium 11.5 mg/dL (8.4-10.2); Carbon Dioxide 19 mmol/L (22-29); Chloride 110 mmol/L (96-108); Estimated Glomerular Filt Rate 31; Glucose Random 170 mg/dL (60-115); Sodium 140 mmol/L (135-145); Total Protein 7.9 g/dL (6.5-8.0)
[2023-09-18 14:26] LABS: Estimated Average Glucose 177 mg/dL; Hemoglobin A1c % 7.8 % (<6.0)
[2023-09-18 14:44] LABS: Lithium 0.21 mmol/L (0.60-1.20)
== END 2023-09-18 10:54 | disposition home or self-care (01) ==
LOC: HO.10HDL 10:53
PROVIDERS: Visit Provider Internal Medicine
DX: E11.22 Type 2 diabetes mellitus with diabetic chronic kidney disease (principal); I12.9 Hypertensive chronic kidney disease with stage 1 through stage 4 chronic kidney disease, or unspecified chronic kidney disease; N18.9 Chronic kidney disease, unspecified; D64.9 Anemia, unspecified
CPT/HCPCS: 36415; 80053; 80178; 83036; 85025

== ENCOUNTER 2023-09-27 10:10 | Outpatient (REF) | payer OTHER, SELFPAY ==
[2023-09-27 11:26] LABS: Anion Gap 15 (12-20); Blood Urea Nitrogen 43 mg/dL (9-16); Calcium 10.7 mg/dL (8.4-10.2); Carbon Dioxide 20 mmol/L (22-29); Chloride 110 mmol/L (96-108); Estimated Glomerular Filt Rate 33; Glucose Random 177 mg/dL (60-115); Potassium 4.8 mmol/L (3.3-5.1); Sodium 140 mmol/L (135-145)
[2023-09-28 17:49] LABS: Calcium (PTHI) 10.8 mg/dL (8.6-10.4); PTHI <6 pg/mL (16-77)
== END 2023-09-27 10:11 | disposition home or self-care (01) ==
LOC: HO.10HDL 10:10
PROVIDERS: Visit Provider Internal Medicine
DX: N18.9 Chronic kidney disease, unspecified (principal)
CPT/HCPCS: 36415; 80048; 83970

== ENCOUNTER 2023-12-28 10:39 | Outpatient (REF) | payer OTHER, SELFPAY ==
[2023-12-28 11:57] LABS: Influenza A PCR POSITIVE (Negative); Influenza B PCR NEGATIVE (Negative); Resp Syncy Virus RNA Qual PCR NEGATIVE (Negative); SARS COV2 PCR INHOUSE NEGATIVE (Negative)
[2023-12-28 13:23] LABS: MANUAL DIFF FLAG NO
[2023-12-28 13:34] LABS: Basophils Percent Auto 0.3 % (0-2); Eosinophils Absolute Auto 0.3 X10*3/uL (0.0-0.4); Eosinophils Percent Auto 2.5 % (0-4); Hematocrit 31.3 % (37.0-47.0); Imm Gran Pct Auto 0.8 % (0.0-0.4); Lymphocytes Absolute Auto 3.5 X10*3/uL (1.2-4.9); Lymphocytes Percent Auto 27.8 % (20-40); Mean Corpuscular HGB Conc 31.9 g/dl (31.0-35.0); Mean Corpuscular Hemoglobin 29.4 pg (27.0-33.0); Mean Corpuscular Volume 92.1 fL (80.0-98.0); Mean Platelet Volume 8.8 fL (9.4-12.3); Monocytes Absolute Auto 0.9 X10*3/uL (0.1-1.2); Monocytes Percent Auto 7.4 % (2-11); Neutrophils Absolute Auto 7.7 x10*3/uL (2.0-8.3); Neutrophils Percent Auto 61.2 % (45-73); Platelet Count 390 X10*3/uL (160-400); Red Cell Distribution Width 12.7 % (11.0-16.0); White Blood Count 12.6 X10*3/uL (4.8-10.8)
[2023-12-28 14:24] LABS: Alanine Aminotransferase 21 U/L (0-31); Albumin Level 4.2 g/dL (3.5-5.0); Alkaline Phosphatase 58 U/L (39-117); Anion Gap 15 (12-20); Aspartate Amino Transferase 21 U/L (5-31); Bilirubin Total 0.2 mg/dL (0.0-1.0); Blood Urea Nitrogen 43 mg/dL (9-16); Calcium 9.2 mg/dL (8.4-10.2); Carbon Dioxide 14 mmol/L (22-29); Chloride 113 mmol/L (96-108); Estimated Glomerular Filt Rate 30; Free T4 (Free Thyroxine) 1.08 ng/dL (0.71-1.85); Glucose Random 174 mg/dL (60-115); Potassium 5.5 mmol/L (3.3-5.1); Sodium 136 mmol/L (135-145); Thyroid Stimulating Hormone 0.39 uIU/mL (0.32-4.0); Total Protein 7.5 g/dL (6.5-8.0)
[2023-12-28 15:13] LABS: Estimated Average Glucose 160 mg/dL; Hemoglobin A1c % 7.2 % (<6.0)
== END 2023-12-28 10:40 | disposition home or self-care (01) ==
LOC: HO.10HDL 10:39
PROVIDERS: Visit Provider Internal Medicine
DX: R05.9 Cough, unspecified (principal); R06.2 Wheezing; I10 Essential (primary) hypertension; N18.9 Chronic kidney disease, unspecified; E03.9 Hypothyroidism, unspecified; E11.9 Type 2 diabetes mellitus without complications; Z11.52 Encounter for screening for COVID-19; Z20.828 Contact with and (suspected) exposure to other viral communicable diseases
CPT/HCPCS: 0241U; 36415; 80053; 83036; 84439; 84443; 85025

== ENCOUNTER 2024-01-16 11:22 | Outpatient (AMB) | payer OTHER, SELFPAY ==
--- NOTE | 2024-01-16 11:25 | HO.NEPHOV_ITS ---
HPI HPI Comments History of Present Illness Details I would the pleasure of seeing Qi in follow-up of her CKD. She was accompanied by her daughter Karen from [place]. Qi has history of lithium intake. Her lithium dose was reduced earlier which was not well tolerated as far as her mental health issues was concerned. She went back on her original dose of lithium. She had some diarrhea which had improved. She has diabetes and history of hypertension. She is on CHANDU inhibitor. Recently had serum potassium was 5.5 with a serum bicarb of 14. She denies any chest pain, shortness of breath, paroxysmal nocturnal dyspnea, orthopnea, pedal edema, orthostasis or urinary symptoms. She denies taking any excessive nonsteroidal anti-inflammatory medications. She tries to maintain good hydration. [facility] Medical History (Updated 01/16/24 @ 13:58 by Blas Mar MD) Hypertension Chronic kidney disease, stage 3a Hyperlipidemia Bipolar disorder Surgical History History of tonsillectomy Family History Mother No problems noted. Father Stroke Hypertension Diabetes Sister Cancer Social History Alcohol intake: never Patient Tobacco Use Status: Never used Tobacco Vital Signs 01/16/24 11:37 Height 5 ft 5 in Weight 184 lb 4 oz BMI 30.7 BP 144/60 H Blood Pressure Location Rt brachial Position Sitting Pulse 83 Pulse Source Pulse Oximeter Pulse Oximetry (%) 97 Oxygen Delivery Method Room Air Physical Exam Vital Signs: Last Vital Signs Pulse 83 01/16/24 11:37 BP 144/60 H 01/16/24 11:37 Pulse Ox 97 01/16/24 11:37 Oxygen Delivery Method Room Air 01/16/24 11:37 BMI result Body Mass Index 30.7 Const General: comfortable and no acute distress Orientation/consciousness: patient oriented x3 HEENT Head: Yes normocephalic Mouth: Normal oral and palatal mucosa present Eyes EOM: EOMs intact bilaterally Neck Neck: Yes supple Resp Auscultation: clear to auscultation bilaterally Cardio Jugular venous distension: no JVD Rate: regular rate GI Palpation (GI): Soft to palpation Auscultation: normal bowel sounds General: Yes no CVA tenderness Back/Spine/Pelvis Back: no CVA tenderness Skin General skin exam: no rashes or lesions noted Neuro General: patient oriented x3 and moves all extremities Extrem General: Yes no pedal edema Assessment & Plan Assessment & Plan (1) Hypertension: Code(s): I10 - Essential (primary) hypertension Qualifiers: Hypertension type: primary hypertension Qualified Code(s): I10 - Essential (primary) hypertension (2) Chronic kidney disease, stage 3a: Code(s): N18.31 - Chronic kidney disease, stage 3a (3) Metabolic acidosis: Code(s): E87.20 - Acidosis, unspecified (4) Hyperkalemia: Code(s): E87.5 - Hyperkalemia Plan 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 She may have contribution from diabetes, hypertension along with age related loss of renal function for CKD. She has no retinopathy, neuropathy or history of macrovascular disease. She is on CHANDU-inhibitor. She recently had diarrhea. Her serum potassium has been 5.6 with a serum bicarb of 14 recently. When the blood work was repeated today had serum bicarb has improved to 19. Her renal functions are stable. I started her on oral sodium bicarbonate 650 mg once daily to correct metabolic acidosis which hopefully will fix her hyperkalemia as well. She needs to maintain good hydration. She was asked to repeat her blood work again. If her serum potassium is climbing up I shall cut back on her CHANDU inhibitor. She will be a great candidate for Jardiance or Farxiga. I did not make any other medication changes today. All her and her daughter's questions were answered. Follow-up appointment given. Orders: Orders Creatinine Today I10 - Essential (primary) hypertension, N18.31 - Chronic kidney disease, stage 3a Blood Urea Nitrogen Today I10 - Essential (primary) hypertension, N18.31 - Chronic kidney disease, stage 3a Electrolytes Today I10 - Essential (primary) hypertension, N18.31 - Chronic kidney disease, stage 3a Creatinine 3 Months I10 - Essential (primary) hypertension, N18.31 - Chronic kidney disease, stage 3a Blood Urea Nitrogen 3 Months I10 - Essential (primary) hypertension, N18.31 - Chronic kidney disease, stage 3a Electrolytes 3 Months I10 - Essential (primary) hypertension, N18.31 - Chronic kidney disease, stage 3a Calcium Today I10 - Essential (primary) hypertension, N18.31 - Chronic kidney disease, stage 3a Calcium 3 Months I10 - Essential (primary) hypertension, N18.31 - Chronic kidney disease, stage 3a Coding Level of Care Code Est Pt Level 4 (53204) Diagnoses Primary hypertension I10 Hypertension type: primary hypertension Chronic kidney disease, stage 3a N18.31 Metabolic acidosis E87.20 Hyperkalemia E87.5 Results Reviewed Nephrology Results: Hgb 10.0 g/dl (12.0-16.0) L 12/28/23 WBC 12.6 X10*3/uL (4.8-10.8) H 12/28/23 Plt Count 390 X10*3/uL (160-400) 12/28/23 Sodium 140 mmol/L (135-145) 01/16/24 Potassium 5.6 mmol/L (3.3-5.1) H 01/16/24 Chloride 113 mmol/L (96-108) H 01/16/24 Carbon Dioxide 19 mmol/L (22-29) L 01/16/24 BUN 46 mg/dL (9-16) H 01/16/24 Creatinine 1.63 mg/dL (0.5-1.4) H 01/16/24 Calcium 10.3 mg/dL (8.4-10.2) H 01/16/24 Phosphorus 4.5 mg/dL (2.7-4.5) 03/19/23 PTH Intact <6 pg/mL (16-77) L 09/27/23 Urine Protein 30 (1+) mg/dL (Neg-Trace) H 08/22/23 Urine Creatinine 52.98 mg/dL 03/19/23 Protein/Creatinin Ratio 0.76 (<0.2) H 03/19/23 Renal US 03/29/23
[2024-01-16 11:37] VITALS: BP 144/60; PULSE 83; O2SAT 97; BMI 30.7
== END 2024-01-16 12:06 | disposition home or self-care (01) ==
PROVIDERS: PCP Internal Medicine; Visit Provider Internal Medicine Nephrology
DX: I10 Essential (primary) hypertension (principal); N18.31 Chronic kidney disease, stage 3a; E87.20 Acidosis, unspecified; E87.5 Hyperkalemia
CPT/HCPCS: 99214

== ENCOUNTER → 2024-01-16 11:22 | Outpatient (BNVA) | payer OTHER, SELFPAY | PROVIDERS: PCP Internal Medicine; Visit Provider Internal Medicine Nephrology | DX: I12.9 Hypertensive chronic kidney disease with stage 1 through stage 4 chronic kidney disease, or unspecified chronic kidney disease (principal); N18.31 Chronic kidney disease, stage 3a; E87.20 Acidosis, unspecified; E87.5 Hyperkalemia | CPT/HCPCS: 99212 ==

== ENCOUNTER 2024-01-16 12:11 | Outpatient (REF) | payer OTHER, SELFPAY ==
[2024-01-16 13:19] LABS: Anion Gap 14 (12-20); Blood Urea Nitrogen 46 mg/dL (9-16); Calcium 10.3 mg/dL (8.4-10.2); Carbon Dioxide 19 mmol/L (22-29); Chloride 113 mmol/L (96-108); Estimated Glomerular Filt Rate 30; Potassium 5.6 mmol/L (3.3-5.1); Sodium 140 mmol/L (135-145)
== END 2024-01-16 12:12 | disposition home or self-care (01) ==
LOC: HO.10HDL 12:11
PROVIDERS: Visit Provider Internal Medicine Nephrology
DX: I12.9 Hypertensive chronic kidney disease with stage 1 through stage 4 chronic kidney disease, or unspecified chronic kidney disease (principal); N18.31 Chronic kidney disease, stage 3a
CPT/HCPCS: 36415; 80051; 82310; 82565; 84520

== ENCOUNTER 2024-02-02 19:40 | Emergency (ER) | payer OTHER, SELFPAY ==
--- NOTE | ~2024-02-02 | XR_ITS ---
EXAMINATION: XR CHEST CLINICAL INFORMATION: Cough, shortness of breath COMPARISON: Chest x-ray August 28, 2023 TECHNIQUE: Frontal view of the chest was obtained. 2044 hours FINDINGS: Lungs are clear. No pulmonary vascular congestion. There is no pleural effusion. The heart size is normal. The cardiac and mediastinal contours are normal. There are calcifications of the thoracic aorta. There are multilevel degenerative changes of dorsal spine. XR/XR chest 1V IMPRESSION: Unremarkable examination.
--- NOTE | ~2024-02-02 | CT_ITS ---
EXAMINATION: CT HEAD WITHOUT CONTRAST CLINICAL INFORMATION: Dizziness. Pain. COMPARISON: None. TECHNIQUE: Contiguous axial imaging was performed from the skull base to vertex without intravenous administration of contrast. Coronal and sagittal reformatted images are performed at the CT scanner. [This CT examination was performed using dose optimization techniques as appropriate, variously including the following: *Automated exposure control *Adjustment of mA and/or kV according to patient size (this includes techniques or standardized protocols for targeted exams where dose is matched to indication/reason for exam; i.e. extremities or head) *Use of iterative reconstruction technique] DLP: 780 mGy-cm. FINDINGS: There is no evidence of acute intracranial hemorrhage or territorial infarction. No abnormal mass-effect or midline shift is seen. Fowler to white matter differentiation is well preserved. No extra-axial fluid collections are identified. There is generalized global volume loss. There is moderate prominence of the ventricles and the sulci . There is mild hypodensity of the periventricular white matter due to chronic small vessel ischemic disease. There are vascular calcifications of the internal carotid arteries bilaterally. There is no osseous abnormality. The mastoid air cells and visualized portions of the paranasal sinuses are well-aerated. CT/CT head/brain wo IV con IMPRESSION: No acute intracranial pathology.
--- NOTE | 2024-02-02 19:44 | ECG_ITS ---
Test Reason : HYPERTENSIVE Blood Pressure : / mmHG Vent. Rate : 067 BPM Atrial Rate : 067 BPM P-R Int : 228 ms QRS Dur : 130 ms QT Int : 430 ms P-R-T Axes : 068 018 063 degrees QTc Int : 454 ms Sinus rhythm with 1st degree A-V block Right bundle branch block Abnormal ECG When compared with ECG of 09-MAY-2014 12:34, WA interval has increased Right bundle branch block is now Present Referred By: Generic ED Physician Electronically Signed By:JIMMY DELANEY MD
[2024-02-02 19:45] VITALS: BP 178/87; BP 182/67; PULSE 68; PULSE 76; RESP 11; TEMP 37.3; O2SAT 97; O2SAT 98; BMI 37.3
--- NOTE | 2024-02-02 19:58 | ED_ITS ---
HPI - General Adult General Chief complaint: Dizziness Stated complaint: increasing dizziness, stressors, HTN Time Seen by Provider: 02/02/24 19:58 Source: patient, family (patient's daughters) and EMS Mode of arrival: EMS Limitations: no limitations History of Present Illness HPI narrative: Patient is an 83 year old assigned female at with a history of CKD presenting to the emergency department today with increased dizziness and weakness. Patient states that over the last week she has had increased dizziness and weakness. Patient states that she feels like staff at [facility] are talking about her all the time and trying to slip things into her medication and foods. Patient's daughters state that over the last month the patient has become increasingly paranoid about things and has had some psychiatric medication changes including lithium. Patient denies any lightheadedness, abdominal pain, nausea, vomiting, fever, chills, blurry vision, double vision, loss of vision, chest pain, difficulty breathing, shortness of breath, back pain, night sweats, pain with urination, increased urinary frequency, increased urinary urgency, blood in her urine or stool, syncope or a near syncopal episode, recent trauma or falls, bowel incontinence, bladder incontinence, bowel retention, bladder retention, or any other complaints at this time. MD complaint: Dizziness Onset (ago): week(s) (2) Severity: mild Severity scale (1-10): 2 Relieving factors: none Exacerbating factors: none Associated symptoms: denies other symptoms Treatments prior to arrival: none Related Data Home Medications Medication Instructions Recorded Confirmed aspirin 81 mg tablet,delayed 81 mg PO DAILY 01/01/23 01/01/23 release bupropion HCl 75 mg tablet 37.5 mg PO DAILY 01/01/23 01/01/23 cholecalciferol (vitamin D3) 25 25 mcg PO DAILY 01/01/23 01/01/23 mcg (1,000 unit) capsule diltiazem HCl 180 mg 180 mg PO DAILY 01/01/23 01/01/23 capsule,extended release 24 hr enalapril maleate 20 mg tablet 20 mg PO DAILY 01/01/23 01/01/23 glipizide 5 mg tablet, extended 5 mg PO BID 01/01/23 01/01/23 release 24 hr levothyroxine 75 mcg tablet 75 mcg PO QAM 01/01/23 01/01/23 lithium carbonate 300 mg capsule 300 mg PO Q OTHER DAY 01/01/23 01/01/23 lorazepam 0.5 mg tablet 0.25 - 0.5 mg PO BID PRN anxiety 01/01/23 01/01/23 quetiapine 25 mg tablet 12.5 mg PO BEDTIME 01/01/23 01/01/23 sennosides 8.6 mg tablet (senna) 8.6 mg PO DAILY 01/01/23 01/01/23 simvastatin 80 mg tablet 80 mg PO DAILY 01/01/23 01/01/23 dicyclomine 10 mg capsule 10 mg PO DAILY 01/16/24 fenofibrate nanocrystallized 145 145 mg PO DAILY 01/16/24 mg tablet metformin 500 mg tablet,extended 500 mg PO DAILY 01/16/24 release 24 hr Previous Rx's Medication Instructions Recorded sodium bicarbonate 650 mg tablet 650 mg PO DAILY 30 days #30 tabs 01/16/24 Allergies Allergy/AdvReac Type Severity Reaction Status Date / Time carisoprodol [From [facility]] AdvReac Unknown WEAKNESS Verified 01/16/24 11:39 Review of Systems 2 Constitutional: Constitutional: Reports no additional constitutional complaints, Denies chills, Denies fever(s) and Denies night sweats Eyes: Eyes: Reports no additional eye complaints, Denies blurry vision, Denies change in vision, Denies diplopia, Denies eye discharge, Denies loss of vision and Denies eye pain ENT: Reports dizziness Cardiovascular: Cardiovascular: Reports no additional cardiovascular complaints, Denies chest pain, Denies lightheadedness, Denies Loss of Consciousness and Denies dyspnea Respiratory: Respiratory: Reports no additional respiratory complaints and Denies dyspnea Gastrointestinal: Gastrointestinal: Reports no additional gastrointestinal complaints, Denies abdominal pain, Denies melena, Denies hematochezia, Denies change in bowel habits and Denies change in stool character Genitourinary: Genitourinary: Denies hematuria, Denies urinary frequency, Denies dysuria, Denies urinary incontinence, Denies urinary hesitancy and Denies urinary urgency Musculoskeletal: Musculoskeletal: Reports no additional musculoskeletal complaints, Denies numbness and Denies tingling Neurologic: Reports dizziness, Denies loss of vision, Denies numbness and Denies tingling Psychiatric: Psychiatric: Reports paranoia Endocrine: Endocrine: Reports no additional endocrine complaints Hematologic/Lymphatic: Hematologic/Lymphatic: Reports no additional hematologic/lymphatic complaints Allergic/Immunologic: Allergic/Immunologic: Reports no additional allergic/immunologic complaints [facility] Past Medical History Attestation statement: The following information was validated with the patient. (all information validated with the patient's daughters) Source: old records reviewed, obtained from family (patient's daughters provided additional history and confirmed the history provided by the patient.) and nursing notes reviewed Medical History Hypertension Chronic kidney disease, stage 3a Hyperlipidemia Bipolar disorder Surgical History History of tonsillectomy Family History Family History Mother No problems noted. Father Stroke Hypertension Diabetes Sister Cancer Social History Social History Alcohol intake: never Patient Tobacco Use Status: Never used Tobacco Advance Directives: No Advance Directives Information Provided: No Physical Exam ED Vital Signs: Vital Signs - 24 hr 02/02/24 19:45 Temperature 99.2 F Pulse Rate 68 Respiratory Rate 11 L Blood Pressure 182/67 H Pulse Oximetry 97 Oxygen Delivery Method Room Air BMI result Body Mass Index 37.3 Const General: cooperative, no acute distress, alert and awake Nutritional Appearance: well nourished Orientation/consciousness: patient oriented x3 Limitations: no limitations HENMT Head: Yes normal to inspection Ears: hearing grossly normal bilaterally General nose exam: Normal external nose present Face and sinus: Yes normal facial exam Mouth: Normal oral and palatal mucosa present Throat: Yes posterior oropharynx normal Eyes General: appearance normal, both eyes and all related structures Periorbital: periorbital findings normal Eyelids: Yes eyelids normal Conjunctivae: conjunctivae normal Pupils: Equal, round and reactive pupils present EOM: EOMs intact bilaterally Neck Neck: Yes normal visual inspection, Yes full ROM and Yes no lymphadenopathy Chest Chest palpation & inspection: normal inspection of the chest Resp Effort & Inspection: normal respiratory effort and able to speak in complete sentences Auscultation: clear to auscultation bilaterally Cardio Jugular venous distension: no JVD Palpation: normal PMI Rate: regular rate Rhythm: regular rhythm GI Inspection: Yes normal to inspection Palpation (GI): Soft to palpation and nontender Auscultation: normal bowel sounds Neuro General: patient oriented x3 Cranial nerves: Yes Equal, round and reactive pupils present Cognition (Neuro): normal cognition Motor exam (neuro): 5/5 motor strength present throughout Sensory Exam: Normal double simultaneous stimulation for sensation Coordination: [id number] test normal Extrem General: Yes normal to inspection, Yes full ROM and Yes capillary refill normal Psych Appearance: grossly normal Mental Status: mental status grossly normal Speech and movement: Clear speech present Affect: normal affect Attitude: cooperative Thought process: Normal thought process present Thought content: Paranoid delusions present (Patient expresses feeling like people are out to get her) Medications Administered Discontinued Medications Generic Name Dose Route Start Last Admin Trade Name Freq PRN Reason Stop Dose Admin Sodium Chloride 1,000 mls @ 999 mls/hr 02/02/24 20:30 02/02/24 23:51 Ns IV 02/02/24 21:30 Infused .Q1H1M TRAN Infusion Medical Decision Making Medical Decision Making MDM Narrative: Patient is an 83 year old assigned female at with a history of CKD and bipolar disorder presenting to the emergency department today with dizziness and increased paranoia. Patient's physical exam was unremarkable. Patient's blood work showed an elevated CR that is consistent with the patient's baseline. Patient's labs were otherwise unremarkable. Patient's urine is pending at this time. Patient's EKG was unremarkable. Patient's chest x-ray and head CT showed no acute process. I explained my physical exam findings as well as all test results to the patient and the patient's daughters. I answered all questions asked by the patient and the patient's daughters. I discussed having a psychiatry evaluation while in the department with the patient and the patient's daughters. They all agreed this would be best for the patient given her increased paranoia and medication adjustments. Patient is medically cleared at this time. Will place CARE, psychiatry, and case management evaluation orders in so they can coordinate care for this patient. Patient's urine should be followed up on after it is obtained. Physician observation begins 1202/03/2024. Differential Diagnosis Differential Diagnoses: The differential diagnosis associated with the presentation includes Paranoia Dizziness Bipolar disorder Admission/Observation Consideration of admission/observation: Escalation of care including admission/observation considered Patient would have been admitted to the hospital had her work up had any findings where hospital admission was appropriate and her clinical presentation warranted hospital admission. Patient may be psychiatrically admitted after CARE and psychiatry evaluations. Lab Data [facility] Lab Attestation statement: I reviewed the patient's lab results. My interpretation of these results are in the MDM Rationale portion of this note. 02/02/24 21:53 02/02/24 21:53 Labs: Lab Results 02/02/24 02/02/24 Range/Units 19:56 21:53 WBC 11.1 H (4.8-10.8) X10*3/uL RBC 3.54 L (4.20-5.50) X10*6/uL Hgb 10.4 L (12.0-16.0) g/dl Hct 32.8 L (37.0-47.0) % MCV 92.7 (80.0-98.0) fL MCH 29.4 (27.0-33.0) pg MCHC 31.7 (31.0-35.0) g/dl RDW 13.0 (11.0-16.0) % Plt Count 357 (160-400) X10*3/uL MPV 9.0 L (9.4-12.3) fL Immature Gran % (Auto) 0.6 H (0.0-0.4) % Neut % (Auto) 48.7 (45-73) % Lymph % (Auto) 36.2 (20-40) % [place] % (Auto) 10.2 (2-11) % Eos % (Auto) 3.8 (0-4) % Baso % (Auto) 0.5 (0-2) % Lymph # (Auto) 4.0 (1.2-4.9) X10*3/uL [place] # (Auto) 1.1 (0.1-1.2) X10*3/uL Eos # (Auto) 0.4 (0.0-0.4) X10*3/uL Baso # (Auto) 0.1 (0.0-0.2) X10*3/uL Abs Immat Gran (auto) 0.07 H (0.00-0.03) X10*3/uL Absolute Neuts (auto) 5.4 (2.0-8.3) x10*3/uL Absolute Nucleated RBC 0.000 (0.0-0.012) X10*3/uL Nucleated RBC % (auto) 0.0 (0.0-0.2) /100WBC Sodium 143 (135-145) mmol/L Potassium 4.8 (3.3-5.1) mmol/L Chloride 115 H (96-108) mmol/L Carbon Dioxide 20 L (22-29) mmol/L Anion Gap 13 (12-20) BUN 50 H (9-16) mg/dL Creatinine 1.53 H (0.5-1.4) mg/dL Estim Creat Clear Calc 26.8 Estimated GFR 32 POC Glucose 169 H (60-115) mg/dL Random Glucose 113 (60-115) mg/dL Lactic Acid 1.4 (0.5-2.0) mmol/L Calcium 10.0 (8.4-10.2) mg/dL Magnesium 2.2 (1.6-2.6) mg/dL Total Bilirubin 0.2 (0.0-1.0) mg/dL AST 21 (5-31) U/L ALT 18 (0-31) U/L Alkaline Phosphatase 55 (39-117) U/L Troponin I High Sens 2.8 (<3.5-17.0) ng/L Total Protein 7.4 (6.5-8.0) g/dL Albumin 4.3 (3.5-5.0) g/dL TSH 0.43 (0.32-4.0) uIU/mL [place] 0.53 L (0.60-1.20) mmol/L Influenza Type A (PCR) NEGATIVE (Negative) Influenza Type B (PCR) NEGATIVE (Negative) RSV RNA Qual (PCR) NEGATIVE (Negative) SARS-CoV-2 RNA (RT-PCR) NEGATIVE (Negative) Independent Interpretation I performed an independent interpretation of an: EKG, Plain X-Ray and CT Scan Interpretation: My interpretation is in agreement with the radiologist's impression of these imaging studies. - EXAMINATION: CT HEAD WITHOUT CONTRAST CLINICAL INFORMATION: Dizziness. Pain. COMPARISON: None. TECHNIQUE: Contiguous axial imaging was performed from the skull base to vertex without intravenous administration of contrast. Coronal and sagittal reformatted images are performed at the CT scanner. [This CT examination was performed using dose optimization techniques as appropriate, variously including the following: *Automated exposure control *Adjustment of mA and/or kV according to patient size (this includes techniques or standardized protocols for targeted exams where dose is matched to indication/reason for exam; i.e. extremities or head) *Use of iterative reconstruction technique] DLP: 780 mGy-cm. FINDINGS: There is no evidence of acute intracranial hemorrhage or territorial infarction. No abnormal mass-effect or midline shift is seen. Fowler to white matter differentiation is well preserved. No extra-axial fluid collections are identified. There is generalized global volume loss. There is moderate prominence of the ventricles and the sulci . There is mild hypodensity of the periventricular white matter due to chronic small vessel ischemic disease. There are vascular calcifications of the internal carotid arteries bilaterally. There is no osseous abnormality. The mastoid air cells and visualized portions of the paranasal sinuses are well-aerated. CT/CT head/brain wo IV con IMPRESSION: No acute intracranial pathology. Dictated By: Philip Macario MD Signed By: Electronically signed by Philip Macario MD 02/02/24 7012 - EXAMINATION: XR CHEST CLINICAL INFORMATION: Cough, shortness of breath COMPARISON: Chest x-ray August 28, 2023 TECHNIQUE: Frontal view of the chest was obtained. 2044 hours FINDINGS: Lungs are clear. No pulmonary vascular congestion. There is no pleural effusion. The heart size is normal. The cardiac and mediastinal contours are normal. There are calcifications of the thoracic aorta. There are multilevel degenerative changes of dorsal spine. XR/XR chest 1V IMPRESSION: Unremarkable examination. Dictated By: Philip Macario MD Signed By: Electronically signed by Philip Macario MD 02/02/242132 - Vent. Rate: 67 BPM TN interval: 228 ms QRS Duration: 130 ms QT/QTc-Baz: 430/454 ms P-R-T axes: 68 18 63 Sinus rhythm with 1st degree AV block Radiology Impression Discussion of test interpretation with radiology: I have reviewed the radiologist's reading. Independent Historian Clinical information obtained from an independent historian. History obtained from or confirmed by: EMS (EMS provided additional history and confirmed the history provided by the patient) and Other (patient's daughters provided additional history and confirmed the history provided by the patient) Critical Care Time Critical Care Time Critical Care Time: Yes Total Critical Care Time: 55 Attestation: I spent 55 minutes of Critical Care Time with this patient. This does not include time spent on separately reported billable procedures. Discharge Plan Discharge Clinical Impression: Dizziness, Paranoia Patient Disposition: Still a Patient Prescriptions: No Action sodium bicarbonate 650 mg tablet 650 mg PO DAILY 30 Days Qty: 30 4RF levothyroxine 75 mcg tablet 75 mcg PO QAM glipizide 5 mg tablet extended release 24hr 5 mg PO BID diltiazem HCl 180 mg capsule,extended release 24hr 180 mg PO DAILY enalapril maleate 20 mg tablet 20 mg PO DAILY aspirin 81 mg tablet,delayed release (DR/EC) 81 mg PO DAILY bupropion HCl 75 mg tablet 37.5 mg PO DAILY sennosides [senna] 8.6 mg tablet 8.6 mg PO DAILY cholecalciferol (vitamin D3) 25 mcg (1,000 unit) capsule 25 mcg PO DAILY lorazepam 0.5 mg tablet 0.25 - 0.5 mg PO BID PRN (Reason: anxiety) lithium carbonate 300 mg capsule 300 mg PO Q OTHER DAY simvastatin 80 mg tablet 80 mg PO DAILY quetiapine 25 mg tablet 12.5 mg PO BEDTIME dicyclomine 10 mg capsule 10 mg PO DAILY metformin 500 mg tablet extended release 24 hr 500 mg PO DAILY fenofibrate nanocrystallized 145 mg tablet 145 mg PO DAILY
[2024-02-02 19:59] LABS: Glucose, Whole Blood 169 mg/dL (60-115)
[2024-02-02 21:36] VITALS: BP 163/58; PULSE 66; RESP 14
[2024-02-02 21:56] LABS: Basophils Absolute Auto 0.1 X10*3/uL (0.0-0.2); Basophils Percent Auto 0.5 % (0-2); Eosinophils Absolute Auto 0.4 X10*3/uL (0.0-0.4); Eosinophils Percent Auto 3.8 % (0-4); Hematocrit 32.8 % (37.0-47.0); Hemoglobin 10.4 g/dl (12.0-16.0); Imm Gran Abs Auto 0.07 X10*3/uL (0.00-0.03); Imm Gran Pct Auto 0.6 % (0.0-0.4); Lymphocytes Percent Auto 36.2 % (20-40); MANUAL DIFF FLAG NO; Mean Corpuscular HGB Conc 31.7 g/dl (31.0-35.0); Mean Corpuscular Hemoglobin 29.4 pg (27.0-33.0); Mean Corpuscular Volume 92.7 fL (80.0-98.0); Monocytes Absolute Auto 1.1 X10*3/uL (0.1-1.2); Monocytes Percent Auto 10.2 % (2-11); Neutrophils Absolute Auto 5.4 x10*3/uL (2.0-8.3); Neutrophils Percent Auto 48.7 % (45-73); Platelet Count 357 X10*3/uL (160-400); Red Blood Count 3.54 X10*6/uL (4.20-5.50); White Blood Count 11.1 X10*3/uL (4.8-10.8)
[2024-02-02] MEDS: 0.9 % Sodium Chloride 1,000 ML 999 ML IV (21:56)
[2024-02-02 22:04] LABS: Lithium 0.53 mmol/L (0.60-1.20)
[2024-02-02 22:07] LABS: Lactic Acid 1.4 mmol/L (0.5-2.0)
[2024-02-02 22:18] LABS: Alanine Aminotransferase 18 U/L (0-31); Albumin Level 4.3 g/dL (3.5-5.0); Alkaline Phosphatase 55 U/L (39-117); Anion Gap 13 (12-20); Aspartate Amino Transferase 21 U/L (5-31); Bilirubin Total 0.2 mg/dL (0.0-1.0); Blood Urea Nitrogen 50 mg/dL (9-16); Carbon Dioxide 20 mmol/L (22-29); Chloride 115 mmol/L (96-108); Creatinine Clr Calc Pharmacy 26.8; Estimated Glomerular Filt Rate 32; Glucose Random 113 mg/dL (60-115); Magnesium 2.2 mg/dL (1.6-2.6); Potassium 4.8 mmol/L (3.3-5.1); Sodium 143 mmol/L (135-145); Total Protein 7.4 g/dL (6.5-8.0)
[2024-02-02 22:19] LABS: Troponin-I High Sensitivity 2.8 ng/L (<3.5-17.0)
[2024-02-02 22:32] LABS: Influenza A PCR NEGATIVE (Negative); Influenza B PCR NEGATIVE (Negative); Resp Syncy Virus RNA Qual PCR NEGATIVE (Negative); SARS COV2 PCR INHOUSE NEGATIVE (Negative)
[2024-02-02 22:33] LABS: TSH reflex Free T4 0.43 uIU/mL (0.32-4.0)
--- NOTE | 2024-02-03 01:26 | PC.NURSE ---
multiple attempts made to collect urine sample from patient. pt assisted too restroom by school library media specialist. pt unsuccessful on use of hat collection device, still awaiting urine sample
[2024-02-03 03:23] VITALS: BP 145/45; PULSE 67; RESP 16; TEMP 36.8; O2SAT 97
[2024-02-03 03:38] LABS: Appearance Urine Clear; Color Urine Yellow; Glucose Urine UA Negative (Negative); Leukocyte Esterase Urine Trace (Negative); Nitrite Urine Negative (Negative); PH 6.5 (5.0-9.0); UMIC TRIGGER UACC YES; Urine Blood Negative (Negative); Urine Ketones Negative (Negative); Urine Protein Negative (Neg-Trace)
[2024-02-03 04:00] LABS: Bacteria Urine None Seen (None Seen); Hyaline Casts Urine 0-2 /LPF (0-2); RBC Urine 0-2 /HPF (0-2); Squamous Epithelial Cell Urine 0-2 /HPF (0-2); WBC Urine 0-5 /HPF (0-5)
--- NOTE | 2024-02-03 05:32 | PC.NURSE ---
this rn attempted x 2 to complete med rec. difficulty in mar removing discontinued medications, computer not allowing med rec to save
--- NOTE | 2024-02-03 07:40 | PC.NURSE ---
Resumed care of patient, she is currently a/ox4. pt ate all of her breakfast, plan of care gone over with patient, she is in agreement with plan. She is a/ox4. Awaiting psych/careteam/case management at this time .
[2024-02-03 07:47] VITALS: BP 158/54; PULSE 78; RESP 19; TEMP 37.1; O2SAT 94
[2024-02-03 10:45] VITALS: BP 165/64; PULSE 72; RESP 15; TEMP 37.1; O2SAT 94
--- NOTE | 2024-02-03 13:45 | PM.PSYCN ---
History of Present Illness Date of Service: 02/03/24 Chief Complaint: increasing dizziness, stressors, HTN Discussed with referring provider: Yes Sources of Information: patient interviewed and chart reviewed Additional Sources of Information: DaughterMeenu HPI Narrative: 83yo (84 tomorrow), came to ED with dizziness and increased paranoia. Resides at [facility] x 12 years- independent with [facility]. Cognitively sharp, A and O x 4. Noted concerns about a neighbour x 2 years- put sounds into refrigerator and people gossip. Some concern about medications or food being altered. Worse in last few months ( Nov 2023). Is adherent with medications as arranged by [facility]. Sleep OK. Pt very aware of medications, history of same e.g. lithium and kidney changes, but maintaining current dose as negative effects when dose lowered in the past. Has been on wellbutrin and lithium for > 10 years and seroquel for just over 1 year or so. Has been some increased speech recently- noted by family too. No impulsive behavior. Sleep good with meds. Able to acknowledge she might be misinterpreting some things and agreed to increasing seroquel to 37.5mg at bedtime and 12.5mg morning. Has a psychiatrist throught [facility] ( Dr. Rose )- follow up in March but can call and have this moved forward. Discussed with ED, pt and family and ensure following info is on discharge paperwork so pt and family have copies of same: 1) increase seroquel to 37.5mg at bedtime and 12.5mg morning (given one dose in ED before leaving) i.e. 1.5 of 25mg tabs bedtime and 0.5 of 25mg tabs morning. 2) No changes to lithium or wellbutrin. 3) Has a psychiatrist through [facility] ( Dr. Rose )- follow up in March but can call and have this moved forward. 4) Family will help ensure communication around med dose changes to [facility] for med box and also Psychiatrist for appointment being brought forward. Past Psychiatric History: Bipolar Disorder. Last inpatient episode was 15 years or more ago. [place] and wellbutrin for 12 years, Seroquel x 1 year. [facility], with 'Dr. Rose' [facility] Medical History Hypertension Chronic kidney disease, stage 3a Hyperlipidemia Bipolar disorder Surgical History History of tonsillectomy Social History: [facility] x 12 years, [facility] for med management. Six children (5 daughters and 1 son)- very supportive Diagnostics Vital Signs (24Hr): Vital Signs - 24 hr 02/02/24 19:45 02/02/24 21:36 02/03/24 03:23 Temperature 99.2 F 98.3 F Pulse Rate 68 66 67 Respiratory Rate 11 L 14 16 Blood Pressure 182/67 H 163/58 H 145/45 H Pulse Oximetry 97 97 Oxygen Delivery Method Room Air Room Air 02/03/24 07:47 02/03/24 10:45 Temperature 98.8 F 98.8 F Pulse Rate 78 72 Respiratory Rate 19 15 Blood Pressure 158/54 H 165/64 H Pulse Oximetry 94 94 Oxygen Delivery Method Room Air Room Air BMI result Body Mass Index 37.3 Labs 02/02/24 21:53 02/02/24 21:53 Labs: Laboratory Results - last 48 hr 02/02/24 02/02/24 02/03/24 19:56 21:53 03:25 WBC 11.1 H RBC 3.54 L Hgb 10.4 L Hct 32.8 L MCV 92.7 MCH 29.4 MCHC 31.7 RDW 13.0 Plt Count 357 MPV 9.0 L Immature Gran % (Auto) 0.6 H Neut % (Auto) 48.7 Lymph % (Auto) 36.2 [place] % (Auto) 10.2 Eos % (Auto) 3.8 Baso % (Auto) 0.5 Lymph # (Auto) 4.0 [place] # (Auto) 1.1 Eos # (Auto) 0.4 Baso # (Auto) 0.1 Abs Immat Gran (auto) 0.07 H Absolute Neuts (auto) 5.4 Absolute Nucleated RBC 0.000 Nucleated RBC % (auto) 0.0 Sodium 143 Potassium 4.8 Chloride 115 H Carbon Dioxide 20 L Anion Gap 13 BUN 50 H Creatinine 1.53 H Estim Creat Clear Calc 26.8 Estimated GFR 32 POC Glucose 169 H Random Glucose 113 Lactic Acid 1.4 Calcium 10.0 Magnesium 2.2 Total Bilirubin 0.2 AST 21 ALT 18 Alkaline Phosphatase 55 Troponin I High Sens 2.8 Total Protein 7.4 Albumin 4.3 TSH 0.43 Urine Color Yellow Urine Appearance Clear Urine pH 6.5 Ur Specific [place] 1.010 Urine Protein Negative Urine Glucose (UA) Negative Urine Ketones Negative Urine Blood Negative Urine Nitrite Negative Ur Leukocyte Esterase Trace H Urine RBC 0-2 Urine WBC 0-5 Ur Squamous Epith Cells 0-2 Urine Bacteria None Seen Hyaline Casts 0-2 [place] 0.53 L Influenza Type A (PCR) NEGATIVE Influenza Type B (PCR) NEGATIVE RSV RNA Qual (PCR) NEGATIVE SARS-CoV-2 RNA (RT-PCR) NEGATIVE Imaging Radiology Impressions: ITS Impressions Chest X-Ray 02/02/24 20:45 IMPRESSION: Unremarkable examination. Head CT 02/02/24 20:49 IMPRESSION: No acute intracranial pathology. Medications Medications Current Medications Quetiapine Fumarate (Quetiapine Fumarate 25 Mg Tablet) 12.5 mg PO DAILY TRAN Quetiapine Fumarate (Quetiapine Fumarate 25 Mg Tablet) 37.5 mg PO BEDTIME TRAN Allergies Allergies Allergy/AdvReac Type Severity Reaction Status Date / Time carisoprodol [From SOMA] AdvReac Unknown WEAKNESS Verified 01/16/24 11:39 Assessment & Plan Assessment & Plan (1) Paranoia: Status: Acute Code(s): F22 - Delusional disorders Assessment and Plan: Hx of bipolar disorder with paranoia/hallucinations present for 2 years, otherwise mood stable. Seroquel helpful for paranoia/hallucinations, but increased more in last few weeks/months (some stressors). Able to acknowledge she might be misinterpreting some things and agreed to increasing seroquel to 37.5mg at bedtime and 12.5mg morning (given one dose in ED before leaving). No changes to lithium or wellbutrin. Has a psychiatrist throught [facility] ( Dr. Rose )- follow up in March but can call and have this moved forward. Family will help ensure communication around med dose changes to [facility] for med box and also Psychiatrist for appointment being brought forward. Plan Discussed with ED, pt and family and ensure following info is on discharge paperwork so pt and family have copies of same: 1) increase seroquel to 37.5mg at bedtime and 12.5mg morning (given one dose in ED before leaving) i.e. 1.5 of 25mg tabs bedtime and 0.5 of 25mg tabs morning. 2) No changes to lithium or wellbutrin. 3) Has a psychiatrist through [facility] ( Dr. Rose )- follow up in March but can call and have this moved forward. 4) Family will help ensure communication around med dose changes to [facility] for med box and also Psychiatrist for appointment being brought forward. Total time managing care of this patient today ____ minutes. Patient educated on: diagnosis and medication risk/benefits Informed Consent: understands
--- NOTE | 2024-02-03 14:42 | PC.NURSE ---
This Rn went in to have discussion with patient and pt daughter about taking seroquel dose prior to d/c, it was decided that she did not want to take the dose and wanted to wait to take the dose tonight. Pt able to verbalize agreement to d/c instructions. Able to independently transfer to w/c and be escorted off the unit by daughter
== END 2024-02-03 14:45 | disposition skilled nursing facility (03) ==
PROVIDERS: Physician Assistant Medical; Emergency Provider Emergency Medicine Emergency Medical Services; PCP Internal Medicine
DX: R42 Dizziness and giddiness (principal); F22 Delusional disorders; R05.9 Cough, unspecified; R06.02 Shortness of breath; I12.9 Hypertensive chronic kidney disease with stage 1 through stage 4 chronic kidney disease, or unspecified chronic kidney disease; E11.22 Type 2 diabetes mellitus with diabetic chronic kidney disease; N18.31 Chronic kidney disease, stage 3a; Z11.52 Encounter for screening for COVID-19; Z20.828 Contact with and (suspected) exposure to other viral communicable diseases
CPT/HCPCS: 0241U; 36415; 70450; 71045; 80053; 80178; 81001; 82947; 83605; 83735; 84443; 84484; 85025; 87040; 93005; 96360; 96361; 99284; 99285

== ENCOUNTER → 2024-02-02 19:44 | Outpatient (BNV) | payer OTHER, SELFPAY | PROVIDERS: Emergency Provider Emergency Medicine Emergency Medical Services; PCP Internal Medicine; Visit Provider Internal Medicine Cardiovascular Disease | DX: I10 Essential (primary) hypertension (principal) | CPT/HCPCS: 93010 ==

== ENCOUNTER → 2024-02-02 20:17 | Outpatient (BNV) | payer OTHER, SELFPAY | PROVIDERS: Emergency Provider Emergency Medicine Emergency Medical Services; PCP Internal Medicine; Visit Provider Psychiatry & Neurology Psychiatry | DX: F22 Delusional disorders (principal) | CPT/HCPCS: 99284 ==

== ENCOUNTER 2024-03-13 15:45 | Emergency (ER) | payer OTHER, SELFPAY ==
--- NOTE | ~2024-03-13 | CT_ITS ---
EXAMINATION: CT HEAD WITHOUT CONTRAST CLINICAL INFORMATION: Fall, head strike COMPARISON: None available. TECHNIQUE: Contiguous axial imaging was performed from the skull base to vertex without intravenous administration of contrast. This CT examination was performed using dose optimization techniques as appropriate, variously including the following: *Automated exposure control *Adjustment of mA and/or kV according to patient size (this includes techniques or standardized protocols for targeted exams where dose is matched to indication/reason for exam; i.e. extremities or head) *Use of iterative reconstruction technique DLP: 722.85 mGy-cm FINDINGS: CT examination of the brain shows age-related involutional changes with prominence of the ventricles and sulci. Periventricular white matter hypodensities are evident, likely on the basis of chronic microvascular ischemic disease. No acute hemorrhage, mass effect or shift is evident. In the posterior fossa, the brainstem, cerebellum and fourth ventricle are unremarkable. There is a left frontal extra-axial CSF attenuation ovoid circumscribed mass with thinning of the inner table, presumably long-standing arachnoid cyst of no clinical significance. The orbits and bony calvarium are intact. The paranasal sinuses and mastoid air cells are well pneumatized and clear. CT/CT head/brain wo IV con IMPRESSION: 1. Age-related involutional changes and microvascular disease. 2. No acute hemorrhage, mass effect, shift or acute intracranial pathology. 3. Incidental left frontal arachnoid cyst.
--- NOTE | ~2024-03-13 | XR_ITS ---
EXAMINATION: XR THORACIC SPINE CLINICAL INFORMATION: Fall COMPARISON: None available. TECHNIQUE: Frontal and lateral views of the thoracic spine FINDINGS: There appear to be 12 rib-bearing vertebrae. No definite acute fracture or subluxation. No suspicious focal lesion. No significant loss of volume. There are extensive proliferative osteophytes. No convincing paraspinal abnormality XR/XR thoracic spine 3V IMPRESSION: No acute fracture or subluxation demonstrated
--- NOTE | ~2024-03-13 | XR_ITS ---
EXAMINATION: XR LUMBOSACRAL SPINE CLINICAL INFORMATION: Fall COMPARISON: None available. TECHNIQUE: Three views of the lumbosacral spine. FINDINGS: There appear to be 5 lumbar-type vertebrae. Mild convex left curve. There is retrolisthesis of L4 relative to L5. No definite acute fracture. There is obliteration of the L4/L5 disc. There is moderate to marked narrowing of the L5/S1 disc and mild to moderate narrowing of the L3/L4 disc. Mild narrowing of the L2/L3 disc. There are proliferative osteophytes and extensive facet disease. There is encroachment upon the canal at the L4/L5 level. There is some foraminal narrowing at L5. There is vascular calcification XR/XR lumbar spine 2-3V IMPRESSION: No definite acute fracture or subluxation. There are severe degenerative disc and joint changes with retrolisthesis of L4 upon L5. This encroaches upon the spinal canal
--- NOTE | ~2024-03-13 | XR_ITS ---
EXAMINATION: XR KNEE, LEFT CLINICAL INFORMATION: Reason for Exam fall onto knee COMPARISON: None TECHNIQUE: 2 views of the knee FINDINGS: No acute fracture or dislocation. Moderate degenerative changes of the knee with loss of medial compartment joint space and tricompartmental osteophytes with quadriceps tendon enthesopathy. No joint effusion. Soft tissues are unremarkable. XR/XR knee LT 2V IMPRESSION: * No acute osseous abnormality. * Moderate degenerative changes of the knee.
--- NOTE | ~2024-03-13 | CT_ITS ---
EXAMINATION: CT CERVICAL SPINE WITHOUT CONTRAST CLINICAL INFORMATION: Neck pain post fall COMPARISON: None available. TECHNIQUE: Axial images This CT examination was performed using dose optimization techniques as appropriate, variously including the following: *Automated exposure control *Adjustment of mA and/or kV according to patient size (this includes techniques or standardized protocols for targeted exams where dose is matched to indication/reason for exam; i.e. extremities or head) *Use of iterative reconstruction technique DLP: 454 mGy-cm FINDINGS: Bone alignment is normal. No fracture or dislocation. Multilevel degenerative spondylosis from C4-C5 to T3-T4. Mild disc space narrowing from C6-C7 to T3-T4. Bilateral multilevel facet arthritis, right greater than left. Degenerative changes at the C1 dens articulation. Prevertebral soft tissues are normal. There is left carotid calcification. Visualized lung apices are clear. CT/CT cervical spine wo IV con IMPRESSION: Multilevel degenerative changes. Fleischner guidelines were followed.
--- NOTE | 2024-03-13 15:54 | ED_ITS ---
HPI - General Adult General Chief complaint: Fall Stated complaint: fell 03/06 dizziness,balance off Time Seen by Provider: 03/13/24 16:17 History of Present Illness HPI narrative: patient complains of intermittent back pain and knee pain and neck pain since a fall about 1 week ago, she was walking and lost her footing outside her house and fell hitting the back of her head on the lawn it did not hit concrete She had no loss of consciousness no confusion she was able to get back up with assistance from a neighbor she has no headache no retrograde amnesia no difficulty ambulating no nausea no vomiting no vision changes She does have some neck pain she is moving her neck normally but she has pain especially in the morning which relieves with activity throughout the day She has pain in both upper and lower back which again is worst in the morning and relieved with activity and at this point in time her neck and back are not hurting The knee was hurting in the morning but again is not hurting now, patient has no other pain complaints Preceding the fall which she remembers very well she simply tripped she had no preceding dizziness fainting or feeling faint no chest pain no headache no confusion no weakness of arm or leg Related Data Home Medications ?Medication ?Instructions ?Recorded ?Confirmed aspirin 81 mg tablet,delayed 81 mg PO DAILY 01/01/23 01/01/23 release bupropion HCl 75 mg tablet 37.5 mg PO DAILY 01/01/23 01/01/23 cholecalciferol (vitamin D3) 25 25 mcg PO DAILY 01/01/23 01/01/23 mcg (1,000 unit) capsule diltiazem HCl 180 mg 180 mg PO DAILY 01/01/23 01/01/23 capsule,extended release 24 hr enalapril maleate 20 mg tablet 20 mg PO DAILY 01/01/23 01/01/23 glipizide 5 mg tablet, extended 5 mg PO BID 01/01/23 01/01/23 release 24 hr levothyroxine 75 mcg tablet 75 mcg PO QAM 01/01/23 01/01/23 lithium carbonate 300 mg capsule 300 mg PO Q OTHER DAY 01/01/23 01/01/23 lorazepam 0.5 mg tablet 0.25 - 0.5 mg PO BID PRN anxiety 01/01/23 01/01/23 quetiapine 25 mg tablet 12.5 mg PO BEDTIME 01/01/23 01/01/23 sennosides 8.6 mg tablet (senna) 8.6 mg PO DAILY 01/01/23 01/01/23 simvastatin 80 mg tablet 80 mg PO DAILY 01/01/23 01/01/23 dicyclomine 10 mg capsule 10 mg PO DAILY 01/16/24 fenofibrate nanocrystallized 145 145 mg PO DAILY 01/16/24 mg tablet metformin 500 mg tablet,extended 500 mg PO DAILY 01/16/24 release 24 hr Previous Rx's ?Medication ?Instructions ?Recorded sodium bicarbonate 650 mg tablet 650 mg PO DAILY 30 days #30 tabs 01/16/24 quetiapine 25 mg tablet (Seroquel) 12.5 mg (1/2 x 25 mg) PO DAILY #14 02/03/24 tabs quetiapine 25 mg tablet (Seroquel) 37.5 mg (1.5 x 25 mg) PO BEDTIME 02/03/24 #14 tabs Allergies Allergy/AdvReac Type Severity Reaction Status Date / Time carisoprodol [From SOMA] AdvReac Unknown WEAKNESS Verified 03/13/24 15:58 [facility] Past Medical History Source: nursing notes reviewed Medical History Hypertension Chronic kidney disease, stage 3a Hyperlipidemia Bipolar disorder Surgical History History of tonsillectomy Family History Family History Mother No problems noted. Father Stroke Hypertension Diabetes Sister Cancer Social History Social History Alcohol intake: never Patient Tobacco Use Status: Never used Tobacco Advance Directives: Yes Advance Directives Information Provided: No Advance Directives on File: No Physical Exam ED Vital Signs: Vital Signs - 24 hr 03/13/24 15:55 Temperature 98.6 F Pulse Rate 76 Respiratory Rate 18 Blood Pressure 154/58 H Pulse Oximetry 97 Oxygen Delivery Method Room Air BMI result Body Mass Index 32.1 general appearance cheerful cooperative no acute distress Head is normocephalic atraumatic Eyes pupils equal round reactive light extraocular motions are intact The neck had some mild paraspinal tenderness no midline tenderness neck has good range of motion The chest wall is nontender Chest is clear to auscultation bilateral There is no rib tenderness Abdomen soft nontender Extremities normal range of motion Both knees are fully mobile with good range of motion no significant tenderness, she can easily stand up from her seat and ambulates easily with her walker Neuro gait and balance are normal, interaction comprehension and expression are all normal, cranial nerves 2-12 intact as tested, motor is 5/5 x4, sensation in extremities intact and symmetrical Course Course Course Narrative: This is an RME: Additional HPI, ROS, PE not included below will be deferred to primary provider. 84 yo f presents with neck soreness, left knee pain, back soreness, dizziness, vision changes secondary to a fall last week. Lost footing prior to fall. Denies chest pain, shortness of breath, nausea, vomiting, diarrhea. CT of head and neck did not reveal any acute abnormalities Neck CT did show arthritis X-rays of thoracic and lumbar spine again showed significant arthritis but no acute bony fractures X-ray of the knee showed arthritis in the knee but no fracture Comfortable patient ambulating easily with her walker with no significant pain now is discharged Plan- labs and imaging Discharge Plan Discharge Clinical Impression: Fall, Back pain, Neck strain Patient Disposition: Home, Self-Care Additional Instructions: the imaging of her neck your head your back and your knee was all negative for broken bones But it did show lots of arthritis in your lower back as well as arthritis in her neck and in the knee No sign of any dangerous injury so you can return to regular activities as tolerated Return any time any concerns If discomfort continues follow with primary doctor for possible referral for physical therapy Prescriptions: No Action sodium bicarbonate 650 mg tablet 650 mg PO DAILY 30 Days Qty: 30 4RF quetiapine [Seroquel] 25 mg tablet 37.5 mg PO BEDTIME Qty: 14 0RF quetiapine [Seroquel] 25 mg tablet 12.5 mg PO DAILY Qty: 14 0RF levothyroxine 75 mcg tablet 75 mcg PO QAM glipizide 5 mg tablet extended release 24hr 5 mg PO BID diltiazem HCl 180 mg capsule,extended release 24hr 180 mg PO DAILY enalapril maleate 20 mg tablet 20 mg PO DAILY aspirin 81 mg tablet,delayed release (DR/EC) 81 mg PO DAILY bupropion HCl 75 mg tablet 37.5 mg PO DAILY sennosides [senna] 8.6 mg tablet 8.6 mg PO DAILY cholecalciferol (vitamin D3) 25 mcg (1,000 unit) capsule 25 mcg PO DAILY lorazepam 0.5 mg tablet 0.25 - 0.5 mg PO BID PRN (Reason: anxiety) lithium carbonate 300 mg capsule 300 mg PO Q OTHER DAY simvastatin 80 mg tablet 80 mg PO DAILY quetiapine 25 mg tablet 12.5 mg PO BEDTIME dicyclomine 10 mg capsule 10 mg PO DAILY metformin 500 mg tablet extended release 24 hr 500 mg PO DAILY fenofibrate nanocrystallized 145 mg tablet 145 mg PO DAILY Print Language: Mozambican
[2024-03-13 15:55] VITALS: BP 154/58; PULSE 76; RESP 18; TEMP 37; O2SAT 97; BMI 32.1
[2024-03-13 19:04] VITALS: BP 146/45; PULSE 68; RESP 18; TEMP 37.1; O2SAT 96
== END 2024-03-13 19:04 | disposition home or self-care (01) ==
PROVIDERS: Emergency Provider Emergency Medicine; PCP Internal Medicine
DX: S16.1XXA Strain of muscle, fascia and tendon at neck level, initial encounter (principal); M54.9 Dorsalgia, unspecified; I12.9 Hypertensive chronic kidney disease with stage 1 through stage 4 chronic kidney disease, or unspecified chronic kidney disease; N18.30 Chronic kidney disease, stage 3 unspecified; W18.30XA Fall on same level, unspecified, initial encounter; Y93.01 Activity, walking, marching and hiking; Y92.9 Unspecified place or not applicable; Y99.9 Unspecified external cause status
CPT/HCPCS: 70450; 72072; 72100; 72125; 73560; 99282; 99284

== ENCOUNTER 2024-03-14 10:41 | Outpatient (REF) | payer OTHER, SELFPAY ==
[2024-03-14 16:56] LABS: Anion Gap 13 (12-20); Blood Urea Nitrogen 50 mg/dL (9-16); Carbon Dioxide 20 mmol/L (22-29); Chloride 112 mmol/L (96-108); Estimated Glomerular Filt Rate 31; Potassium 5.8 mmol/L (3.3-5.1); Sodium 139 mmol/L (135-145)
== END 2024-03-14 10:42 | disposition home or self-care (01) ==
LOC: HO.10HDL 10:41
PROVIDERS: Visit Provider Internal Medicine Nephrology
DX: N18.31 Chronic kidney disease, stage 3a (principal); E87.5 Hyperkalemia; E87.20 Acidosis, unspecified
CPT/HCPCS: 36415; 80051; 82565; 84520

== ENCOUNTER 2024-04-11 15:01 | Outpatient (REF) | payer OTHER, SELFPAY ==
[2024-04-11 16:07] LABS: Anion Gap 16 (12-20); Blood Urea Nitrogen 56 mg/dL (9-16); Calcium 9.6 mg/dL (8.4-10.2); Carbon Dioxide 17 mmol/L (22-29); Chloride 112 mmol/L (96-108); Estimated Glomerular Filt Rate 28; Sodium 140 mmol/L (135-145)
== END 2024-04-11 15:02 | disposition home or self-care (01) ==
LOC: HO.LAB 15:01
PROVIDERS: PCP Internal Medicine; Visit Provider Internal Medicine Nephrology
DX: I12.9 Hypertensive chronic kidney disease with stage 1 through stage 4 chronic kidney disease, or unspecified chronic kidney disease (principal); N18.31 Chronic kidney disease, stage 3a
CPT/HCPCS: 36415; 80051; 82310; 82565; 84520

== ENCOUNTER 2024-04-16 10:37 | Outpatient (AMB) | payer OTHER, SELFPAY ==
--- NOTE | 2024-04-16 10:45 | HO.NEPHOV ---
Vital Signs 04/16/24 10:47 Height 5 ft 5 in Weight 196 lb BMI 32.6 BP 140/50 H Blood Pressure Location Rt brachial Position Sitting Pulse 46 L Pulse Source Pulse Oximeter Pulse Oximetry (%) 97 Oxygen Delivery Method Room Air Intake Visit Reasons: Chronic kidney disease/ 3 MO FU/ Confirmed [employer] Required: No Accompanied by: Daughter Allergies carisoprodol [From [facility]] Adverse Reaction (Unknown, Verified 04/16/24 10:49) WEAKNESS HPI Comments Details: I would the pleasure of seeing Qi in follow-up of her CKD. She was accompanied by her daughter Karen from [place] at the last visit and this time by another daughter Jackelin from [place]. Qi had history of lithium intake which has been restarted recently . She recently had a fall. Her Seroquel dose has been increased. She has diabetes and history of hypertension. She is on CHANDU inhibitor. She denies any chest pain, shortness of breath, paroxysmal nocturnal dyspnea, orthopnea, pedal edema, orthostasis or urinary symptoms. She denies taking any excessive nonsteroidal anti-inflammatory medications. She tries to maintain good hydration. [facility] Medical History Hypertension Chronic kidney disease, stage 3a Hyperlipidemia Bipolar disorder Surgical History History of tonsillectomy Family History Mother No problems noted. Father Stroke Hypertension Diabetes Sister Cancer Social History Alcohol intake: never Patient Tobacco Use Status: Never used Tobacco Physical Exam Vital Signs: Last Vital Signs Pulse 46 L 04/16/24 10:47 BP 146/50 H 04/16/24 10:47 Pulse Ox 97 04/16/24 10:47 Oxygen Delivery Method Room Air 04/16/24 10:47 BMI result Body Mass Index 32.6 Const General: comfortable and no acute distress Orientation/consciousness: patient oriented x3 HEENT Head: Yes normocephalic Mouth: Normal oral and palatal mucosa present Eyes EOM: EOMs intact bilaterally Neck Neck: Yes supple Resp Auscultation: clear to auscultation bilaterally Cardio Jugular venous distension: no JVD Rate: regular rate GI Palpation (GI): Soft to palpation Auscultation: normal bowel sounds General: Yes no CVA tenderness Back/Spine/Pelvis Back: no CVA tenderness Skin General skin exam: no rashes or lesions noted Neuro General: patient oriented x3 and moves all extremities Extrem General: Yes no pedal edema Results Reviewed Nephrology Results: Hgb 10.4 g/dl (12.0-16.0) L 02/02/24 WBC 11.1 X10*3/uL (4.8-10.8) H 02/02/24 Plt Count 357 X10*3/uL (160-400) 02/02/24 Sodium 140 mmol/L (135-145) 04/11/24 Potassium 5.0 mmol/L (3.3-5.1) 04/11/24 Chloride 112 mmol/L (96-108) H 04/11/24 Carbon Dioxide 17 mmol/L (22-29) L 04/11/24 BUN 56 mg/dL (9-16) H 04/11/24 Creatinine 1.73 mg/dL (0.5-1.4) H 04/11/24 Calcium 9.6 mg/dL (8.4-10.2) 04/11/24 PTH Intact <6 pg/mL (16-77) L 09/27/23 Urine Protein Negative mg/dL (Neg-Trace) 02/03/24 Assessment & Plan Assessment & Plan (1) Metabolic acidosis: Code(s): E87.20 - Acidosis, unspecified Category: Medical (2) Hypertension: Code(s): I10 - Essential (primary) hypertension Category: Medical Qualifiers: Hypertension type: primary hypertension Qualified Code(s): I10 - Essential (primary) hypertension (3) Chronic kidney disease, stage 3a: Code(s): N18.31 - Chronic kidney disease, stage 3a Category: Medical Plan 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 She may have contribution from diabetes, hypertension along with age related loss of renal function for CKD. She has no retinopathy, neuropathy or history of macrovascular disease. She is on CHANDU-inhibitor. I shall back off on her ACEI if her serum creatinine or K rises. I increased her oral sodium bicarbonate 650 mg twice daily to correct metabolic acidosis which hopefully will fix her hyperkalemia as well. She needs to maintain good hydration. She was asked to repeat her blood work again. She will be a great candidate for for; to (do) [facility] or [employer]. I did not make any other medication changes today. All her and her daughter's questions were answered. Follow-up appointment given Orders: Orders Creatinine Today E87.20 - Acidosis, unspecified, I10 - Essential (primary) hypertension, N18.31 - Chronic kidney disease, stage 3a Blood Urea Nitrogen Today E87.20 - Acidosis, unspecified, I10 - Essential (primary) hypertension, N18.31 - Chronic kidney disease, stage 3a Electrolytes Today E87.20 - Acidosis, unspecified, I10 - Essential (primary) hypertension, N18.31 - Chronic kidney disease, stage 3a Coding Level of Care Code Est Pt Level 4 (28657) Diagnoses Metabolic acidosis E87.20 Primary hypertension I10 Hypertension type: primary hypertension Chronic kidney disease, stage 3a N18.31
[2024-04-16 10:47] VITALS: BP 140/50; PULSE 46; O2SAT 97; BMI 32.6
== END 2024-04-16 11:19 | disposition home or self-care (01) ==
PROVIDERS: PCP Internal Medicine; Visit Provider Internal Medicine Nephrology
DX: E87.20 Acidosis, unspecified (principal); I10 Essential (primary) hypertension; N18.31 Chronic kidney disease, stage 3a
CPT/HCPCS: 99214

== ENCOUNTER → 2024-04-16 10:37 | Outpatient (BNVA) | payer OTHER, SELFPAY | PROVIDERS: PCP Internal Medicine; Visit Provider Internal Medicine Nephrology | DX: E87.20 Acidosis, unspecified (principal); I10 Essential (primary) hypertension; N18.31 Chronic kidney disease, stage 3a | CPT/HCPCS: 99212 ==

== ENCOUNTER 2024-06-03 11:14 | Outpatient (REF) | payer OTHER, SELFPAY ==
[2024-06-03 13:09] LABS: MANUAL DIFF FLAG NO
[2024-06-03 13:22] LABS: Basophils Absolute Auto 0.1 X10*3/uL (0.0-0.2); Basophils Percent Auto 0.7 % (0-2); Eosinophils Absolute Auto 0.4 X10*3/uL (0.0-0.4); Eosinophils Percent Auto 3.6 % (0-4); Hematocrit 32.6 % (37.0-47.0); Hemoglobin 10.4 g/dl (12.0-16.0); Imm Gran Abs Auto 0.19 X10*3/uL (0.00-0.03); Imm Gran Pct Auto 1.8 % (0.0-0.4); Lymphocytes Percent Auto 28.5 % (20-40); Mean Corpuscular HGB Conc 31.9 g/dl (31.0-35.0); Mean Corpuscular Hemoglobin 29.9 pg (27.0-33.0); Mean Corpuscular Volume 93.7 fL (80.0-98.0); Monocytes Absolute Auto 0.9 X10*3/uL (0.1-1.2); Neutrophils Absolute Auto 5.8 x10*3/uL (2.0-8.3); Neutrophils Percent Auto 56.4 % (45-73); Platelet Count 424 X10*3/uL (160-400); Red Blood Count 3.48 X10*6/uL (4.20-5.50); Red Cell Distribution Width 12.4 % (11.0-16.0); White Blood Count 10.4 X10*3/uL (4.8-10.8)
[2024-06-03 13:35] LABS: Alanine Aminotransferase 14 U/L (0-31); Albumin Level 4.4 g/dL (3.5-5.0); Alkaline Phosphatase 58 U/L (39-117); Anion Gap 13 (12-20); Aspartate Amino Transferase 17 U/L (5-31); Bilirubin Total 0.2 mg/dL (0.0-1.0); Blood Urea Nitrogen 44 mg/dL (9-16); Calcium 10.6 mg/dL (8.4-10.2); Carbon Dioxide 23 mmol/L (22-29); Chloride 107 mmol/L (96-108); Estimated Average Glucose 166 mg/dL; Estimated Glomerular Filt Rate 27; Glucose Random 211 mg/dL (60-115); Hemoglobin A1c % 7.4 % (<6.0); Potassium 5.3 mmol/L (3.3-5.1); Sodium 138 mmol/L (135-145); Total Protein 7.5 g/dL (6.5-8.0)
== END 2024-06-03 11:15 | disposition home or self-care (01) ==
LOC: HO.10HDL 11:14
PROVIDERS: Visit Provider Internal Medicine
DX: I12.9 Hypertensive chronic kidney disease with stage 1 through stage 4 chronic kidney disease, or unspecified chronic kidney disease (principal); E11.22 Type 2 diabetes mellitus with diabetic chronic kidney disease; E03.9 Hypothyroidism, unspecified; N18.9 Chronic kidney disease, unspecified
CPT/HCPCS: 36415; 80053; 83036; 84439; 84443; 85025

== ENCOUNTER 2024-07-18 10:21 | Outpatient (REF) | payer OTHER, SELFPAY ==
[2024-07-18 11:36] LABS: Anion Gap 14 (12-20); Blood Urea Nitrogen 38 mg/dL (9-16); Carbon Dioxide 21 mmol/L (22-29); Chloride 111 mmol/L (96-108); Estimated Glomerular Filt Rate 24; Potassium 5.6 mmol/L (3.3-5.1); Sodium 140 mmol/L (135-145)
== END 2024-07-18 10:22 | disposition home or self-care (01) ==
LOC: HO.LAB 10:21
PROVIDERS: PCP Internal Medicine; Visit Provider Internal Medicine Nephrology
DX: N18.31 Chronic kidney disease, stage 3a (principal); I10 Essential (primary) hypertension; E87.20 Acidosis, unspecified
CPT/HCPCS: 36415; 80051; 82565; 84520

== ENCOUNTER 2024-08-04 11:29 | Outpatient (AMB) | payer OTHER, SELFPAY ==
[2024-08-04 11:32] VITALS: BP 162/70; PULSE 81; O2SAT 95; BMI 33.6
--- NOTE | 2024-08-04 11:32 | HO.NEPHOV ---
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 She was accompanied by her son Delano from [place]. Her daughter Karen from [place] and daughter Jackelin from [place] had visited with her during previous office visits. Qi had history of lithium intake. Her mood is stable. She has diabetes and history of hypertension. She is on CHANDU inhibitor. She denies any chest pain, shortness of breath, paroxysmal nocturnal dyspnea, orthopnea, pedal edema, orthostasis or urinary symptoms. She denies taking any excessive nonsteroidal anti-inflammatory medications. She tries to maintain good hydration. Her serum K and serum creatinine has gone up from baseline. She has H/O hyercalcemia.There were no specific complaints at the time of this office visit. [facility] Medical History Hypertension Chronic kidney disease, stage 3a Hyperlipidemia Bipolar disorder Surgical History History of tonsillectomy Family History Mother No problems noted. Father Stroke Hypertension Diabetes Sister Cancer Social History Alcohol intake: never Patient Tobacco Use Status: Never used Tobacco Review of Systems Const All systems reviewed & are unremarkable except as noted in HPI and below Physical Exam Vital Signs: Last Vital Signs Pulse 81 08/04/24 11:32 BP 162/70 H 08/04/24 11:32 Pulse Ox 95 08/04/24 11:32 Oxygen Delivery Method Room Air 08/04/24 11:32 BMI result Body Mass Index 33.6 Const General: comfortable and no acute distress Orientation/consciousness: patient oriented x3 HEENT Head: Yes normocephalic Mouth: Normal oral and palatal mucosa present Eyes EOM: EOMs intact bilaterally Neck Neck: Yes supple Resp Auscultation: clear to auscultation bilaterally Cardio Jugular venous distension: no JVD Rate: regular rate GI Palpation (GI): Soft to palpation Auscultation: normal bowel sounds General: Yes no CVA tenderness Back/Spine/Pelvis Back: no CVA tenderness Skin General skin exam: no rashes or lesions noted Neuro General: patient oriented x3 and moves all extremities Extrem General: Yes no pedal edema Results Reviewed Nephrology Results: Hgb 10.4 g/dl (12.0-16.0) L 06/03/24 WBC 10.4 X10*3/uL (4.8-10.8) 06/03/24 Plt Count 424 X10*3/uL (160-400) H 06/03/24 Sodium 140 mmol/L (135-145) 07/18/24 Potassium 5.6 mmol/L (3.3-5.1) H 07/18/24 Chloride 111 mmol/L (96-108) H 07/18/24 Carbon Dioxide 21 mmol/L (22-29) L 07/18/24 BUN 38 mg/dL (9-16) H 07/18/24 Creatinine 1.95 mg/dL (0.5-1.4) H 07/18/24 Calcium 10.6 mg/dL (8.4-10.2) H 06/03/24 Urine Protein Negative mg/dL (Neg-Trace) 02/03/24 Assessment & Plan Assessment & Plan (1) AYLA (acute kidney injury): Code(s): N17.9 - Acute kidney failure, unspecified Category: Medical (2) Hypertension: Code(s): I10 - Essential (primary) hypertension Category: Medical Qualifiers: Hypertension type: primary hypertension Qualified Code(s): I10 - Essential (primary) hypertension (3) Chronic kidney disease, stage 3a: Code(s): N18.31 - Chronic kidney disease, stage 3a Category: Medical (4) Hypercalcemia: Code(s): E83.52 - Hypercalcemia Category: Medical Plan 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 She may have contribution from diabetes, hypertension along with age related loss of renal function for CKD. She has no retinopathy, neuropathy or history of macrovascular disease. She is on CHANDU-inhibitor. I reduced her enalapril to 10 mg daily and increased her Diltiazem to 360 mg daily. I asked her to hold Vitamin D. She could continue oral sodium bicarbonate 650 mg twice daily . She needs to maintain good hydration. She was asked to repeat her blood work again. She will be a great candidate for Leapfundermaryjane or Patrickga ( hopefully could start at next visit). I did not make any other medication changes today. All her and her son's questions were answered. Follow-up appointment given Orders: Orders Blood Urea Nitrogen Today E83.52 - Hypercalcemia, I10 - Essential (primary) hypertension, N17.9 - Acute kidney failure, unspecified, N18.31 - Chronic kidney disease, stage 3a Parathyroid Hormone Intact Today E83.52 - Hypercalcemia, I10 - Essential (primary) hypertension, N17.9 - Acute kidney failure, unspecified, N18.31 - Chronic kidney disease, stage 3a Creatinine Today E83.52 - Hypercalcemia, I10 - Essential (primary) hypertension, N17.9 - Acute kidney failure, unspecified, N18.31 - Chronic kidney disease, stage 3a Electrolytes Today E83.52 - Hypercalcemia, I10 - Essential (primary) hypertension, N17.9 - Acute kidney failure, unspecified, N18.31 - Chronic kidney disease, stage 3a Calcium Today E83.52 - Hypercalcemia, I10 - Essential (primary) hypertension, N17.9 - Acute kidney failure, unspecified, N18.31 - Chronic kidney disease, stage 3a Coding Level of Care Code Est Pt Level 4 (04766) Diagnoses AYLA (acute kidney injury) N17.9 Primary hypertension I10 Hypertension type: primary hypertension Chronic kidney disease, stage 3a N18.31 Hypercalcemia E83.52
== END 2024-08-04 12:08 | disposition home or self-care (01) ==
PROVIDERS: PCP Internal Medicine; Visit Provider Internal Medicine Nephrology
DX: N17.9 Acute kidney failure, unspecified (principal); I10 Essential (primary) hypertension; N18.31 Chronic kidney disease, stage 3a; E83.52 Hypercalcemia
CPT/HCPCS: 99214

== ENCOUNTER → 2024-08-04 11:29 | Outpatient (BNVA) | payer OTHER, SELFPAY | PROVIDERS: PCP Internal Medicine; Visit Provider Internal Medicine Nephrology | DX: I12.9 Hypertensive chronic kidney disease with stage 1 through stage 4 chronic kidney disease, or unspecified chronic kidney disease (principal); E11.22 Type 2 diabetes mellitus with diabetic chronic kidney disease; N18.31 Chronic kidney disease, stage 3a; E83.52 Hypercalcemia; N17.9 Acute kidney failure, unspecified; Z79.899 Other long term (current) drug therapy | CPT/HCPCS: 99212 ==